=== PATIENT | male | born 1965 | race Caucasian/White ===

== ENCOUNTER 2023-10-25 06:00 | Emergency (ER) | payer MEDICARE, MEDICAID, SELFPAY ==
[2023-10-25] VITALS (9 sets, daily range): BP systolic 115–134; BP diastolic 59–68; PULSE 58–73; RESP 10–15; TEMP 36.7–36.8; O2SAT 95–100; BMI 29.5
--- NOTE | 2023-10-25 06:03 | ECG_ITS ---
APPROVED REPORT Exam: Resting ECG HR:63 bpm ECG Measurements Heart Rate 63 AXES WI 131 P 87 QRSd 114 QRS 83 QT 406 T 54 QTc 414 Conclusion SINUS RHYTHM MODERATE INTRAVENTRICULAR CONDUCTION DELAY [110+ ms QRS DURATION] BORDERLINE ECG Electronically signed by : BRIT SIMPSON, 10/25/2023 15:18:14
--- NOTE | 2023-10-25 06:05 | XR_ITS ---
FINAL REPORT CLINICAL HISTORY: cp to left shoulder, syncope COMPARISON: None FINDINGS: There is a vague opacity in the left lung base which could be due to active pneumonia or scarring. The right lung is clear. There is no evidence of effusion or pneumothorax. Mediastinum is unremarkable. Heart size is normal. IMPRESSION: Left lung base vague opacity could be due to active pneumonia or scarring. Reviewed, Interpreted and Dictated by Carly Lee MD Transcribed by Jayda Mack Authenticated and [facility]
--- NOTE | 2023-10-25 06:09 | HMH.EDCP ---
Discharge Plan Disposition Chief Complaint: Chest Pain Prescriptions Prescriptions: No Action sertraline [Zoloft] 100 mg Tablet 200 mg PO DAILY atorvastatin 80 mg Tablet 80 mg PO HS meloxicam 15 mg Tablet 15 mg PO DAILY divalproex [Depakote ER] 500 mg Tablet Extended Release 24 Hr 750 mg PO BID topiramate 200 mg Tablet 200 mg PO BID thiamine HCl (vitamin B1) [Vitamin B-1] 100 mg Tablet 100 mg PO DAILY albuterol 90 mcg/actuation Aerosol 2 mcg INHALATION NEEDED PRN (Reason: soa) Clinical Impressions Clinical Impression: Chest pain Discharge ED Provider: Pacheco Goodman HPI General Chief Complaint: Chest Pain Stated Complaint: Chest pain Time Seen by Provider: 10/25/23 06:03 History of Present Illness HPI narrative: Please note that above description of symptoms, in this electronic medical record under categorization of recalled from ER triage doctor by RN are reflective of an initial nursing assessment, however, is not reflective of my full history and physical exam that was personally taken and clarified. Consequentially, this preceding description of symptoms, which may include the patient's categorized chief complaint in the EMR, do not reflect my personal clinical impression, and the ultimate description of history of present illness and patient stated complaints should be deferred to this section of the note. Unless stated otherwise or congruent with this section of the note, additional signs, symptoms, or incongruence should be interpreted as inaccurate with my clinical impression. Related Data Home Medications Medication Instructions Recorded Confirmed albuterol 90 mcg/actuation aerosol 2 mcg inhalation NEEDED PRN soa 10/25/23 10/25/23 inhaler atorvastatin 80 mg tablet 80 mg PO HS 10/25/23 10/25/23 divalproex 500 mg tablet,extended 750 mg PO BID 10/25/23 10/25/23 release 24 hr (Depakote ER) meloxicam 15 mg tablet 15 mg PO DAILY 10/25/23 10/25/23 sertraline 100 mg tablet (Zoloft) 200 mg PO DAILY 10/25/23 10/25/23 thiamine HCl (vitamin B1) 100 mg 100 mg PO DAILY 10/25/23 10/25/23 tablet (Vitamin B-1) topiramate 200 mg tablet 200 mg PO BID 10/25/23 10/25/23 Allergies Allergy/AdvReac Type Severity Reaction Status Date / Time No Known Allergies Allergy Verified 10/25/23 06:16 [facility] Disclaimer: The information contained in this section may have been updated after the patient was seen, as this information can be updated by other users. Medical History (Updated 10/25/23 @ 06:52 by Pacheco Goodman MD) Seizures Surgical History (Updated 10/25/23 @ 06:16 by Flora Martins RN) H/O heart artery stent Social History Smoking Status: Current every day smoker alcohol intake: never current occupational status: unemployed Travel in the last 8 weeks: None ROS Obtained: Yes All systems reviewed & no additional complaints except as documented Physical Exam General General appearance: alert Neck Neck exam: Present trachea midline Chest Chest inspection: Present normal inspection and symmetric chest wall rise Respiratory Respiratory exam: Present normal lung sounds bilaterally; Absent respiratory distress, wheezes, stridor, accessory muscle use or prolonged expiratory phase Cardiovascular Cardiovascular exam: Present regular rate and normal rhythm Extremities Exam Extremities exam: Absent edema Neurological Exam Neurological exam: Present alert, oriented X3 and CN II-XII intact Skin Skin exam: Present warm and dry; Absent cyanosis, diaphoresis or pallor HEART Score HEART Score HEART Score assessment performed?: No Procedures Limited Ultrasound Indication:: Limited cardiac ultrasound Indication: Chest pain Identified cardiac views: -Cardiac parasternal long axis -Cardiac parasternal short axis -Cardiac apical four-chamber Findings: -Cardiac activity present -Gross wall motion normal -Pericardial effusion absent -Right heart strain absent Impression: -Normal cardiac ultrasound Images were saved to permanent archive The study was technically adequate CPT: 14208 This study was performed by me, and I personally interpreted all images/videos. Based on my clinical judgement, these images were adequate and did not necessitate further imaging. Critical Care Critical Care Time Critical Care Time: No Medical Decision Making Medical Records Medical records reviewed: Yes I reviewed the patient's medical records. Joseluis Inquiry Pt receiving controlled substance: No Joseluis was queried for this patient: No Vital Signs Vital Signs: 10/25/23 06:00 10/25/23 06:06 10/25/23 06:31 Temperature 98.2 F Temperature Source Oral Pulse Rate 66 73 Pulse Rate [Left Radial] 69 Respiratory Rate 14 13 12 Blood Pressure 134/59 L 127/68 Blood Pressure [Right Arm] 134/59 L Blood Pressure Mean [Right Arm] 84 Blood Pressure Source [Right Arm] Automatic Cuff Blood Pressure Position [Right Arm] Sitting 02 Sat by Pulse Oximetry 100 98 96 Oxygen Delivery Method Room Air Room Air Room Air Lab Data Labs: Lab Results 10/25/23 05:45: WBC 8.0, RBC 4.10 L, Hgb 14.4, Hct 44.2, MCV 108.0 H, MCH 35.1 H, MCHC 32.5, RDW 13.8, Plt Count 239, MPV 8.4, Neut % (Auto) 43.3, Lymph % (Auto) 46.1, [place] % (Auto) 6.9, Eos % (Auto) 2.7, Baso % (Auto) 1.0, Neut # (Auto) 3.5, Lymph # (Auto) 3.7, [place] # (Auto) 0.6, Eos # (Auto) 0.2, Baso # (Auto) 0.1, Sodium 144, Potassium 4.1, Chloride 101, Carbon Dioxide 30, Anion Gap 17.1 H, BUN 14, Creatinine 0.80, Estimated Creat Clear 132, Estimated GFR 100, Est GFR ( Amer) 121, Glucose 180 H, Hemoglobin A1c 6.7 H, Calcium 10.6 H, Total Bilirubin 0.3, AST 47, ALT 47, Alkaline Phosphatase 66, Total Protein 8.7 H, Albumin 4.6, Globulin 4.1 H, Albumin/Globulin Ratio 1.1, Triglycerides 152 H, Cholesterol 156, VLDL Cholesterol 30, HDL Cholesterol 25 L, Cholesterol/HDL Ratio 6.2 H, Lipase 124 10/25/23 06:09: VBG pH 7.30 L, VBG pCO2 58.2 H, VBG pO2 28.7, VBG HCO3 27.9, VBG Total CO2 29.7 H, VBG O2 Saturation 47.9 L, VBG Base Excess 1.5, VBG Lactic Acid 5.9 H 10/25/23 05:45 10/25/23 05:45 Response Orders (Tests/Meds): ED MEDICATIONS Generic Name Dose Route Start Last Admin Trade Name Freq PRN Reason Stop Dose Admin Lactated Ringer's 2,120 mls @ 1,060 mls/hr 10/25/23 06:16 10/25/23 06:20 Lactated Ringer's 1000 Ml Bag 30 ml/kg infuse over 2 hr (2120 ml) 10/25/23 08:15 1,060 mls/hr IV Administration .Q2H ONE Discontinued Medications Generic Name Dose Route Start Last Admin Trade Name Eleno PRN Reason Stop Dose Admin Aspirin 324 mg 10/25/23 06:04 10/25/23 06:21 Aspirin 81mg Chewable Tablet PO 10/25/23 06:05 Not Given ONCE ONE Aspirin 243 mg 10/25/23 06:04 10/25/23 06:20 Aspirin 81mg Chewable Tablet PO 10/25/23 06:05 243 mg ONCE ONE Administration Morphine Sulfate 4 mg 10/25/23 06:15 10/25/23 06:20 Morphine 4mg/Ml Syringe IV 10/25/23 06:16 4 mg ONCE ONE Administration ORDERS Category Date Time Status CT angio abdomen pelvis Stat Cat Scan 10/25/23 06:[address] angio head Stat Cat Scan 10/25/23 06:[address] angio neck Stat Cat Scan 10/25/23 06:[address] head/brain wo con Stat Cat Scan 10/25/23 06:10 Ordered CTA Chest [CT angio chest - dissection] Stat Cat Scan 10/25/23 06:10 Ordered POCUS Point of Care (ER Only) Stat Exams 10/25/23 06:05 Ordered XR chest portable Stat Exams 10/25/23 06:05 Ordered Complete Blood Count Auto Diff Stat Lab 10/25/23 05:45 Completed Comprehensive Metabolic Panel Stat Lab 10/25/23 05:45 Results Hemoglobin A1C Stat Lab 10/25/23 05:45 Completed Lactic Acid Stat Lab 10/25/23 06:06 Ordered Lipase Stat Lab 10/25/23 05:45 Results Lipid Panel Stat Lab 10/25/23 05:45 Results NT Pro Brain Natriuretic Pep. Stat Lab 10/25/23 05:45 Results PT INR [Prothrombin Time INR] Stat Lab 10/25/23 05:45 Received PTT [Activated Partial Thrombo Time] Stat Lab 10/25/23 05:45 Received Troponin I Q3H Lab 10/25/23 09:15 Ordered Troponin I Q3H Lab 10/25/23 12:15 Ordered Troponin I Stat Lab 10/25/23 05:45 Results Valproic Acid, (Depakene) Routine Lab 10/25/23 05:45 Received Blood Culture Stat Micro 10/25/23 06:16 Ordered VBG [Venous Blood Gas] Stat RT 10/25/23 06:09 Completed MDM Narrative Medical Decision Narrative: 58-year-old male history of hypertension, hyperlipidemia, depression, seizure disorder, CAD status post stenting x 4 (or more, per patient) presenting with chest pain. Patient states that he was sleeping when chest pain woke him up from sleep around 5 AM. Largely unable to offer history for unknown reasons. EMS states that they arrived, patient was tearful, complaining of severe pain substernal radiating to his left shoulder that was 10 out of 10 and unrelenting. Gave 81 mg aspirin. Patient has scattered bruising on chest, extremities which he stated for EMS was from seizures. On arrival, patient speaking intermittently, but does seem confused. Complaining of chest pain is left-sided, points to his left shoulder as well. Tearful. He does have scattered bruising, no evidence of acute trauma. They will seem to be resolving. Pulses are equal and symmetric in bilateral upper and lower extremities, abdominal exam within normal limits without pulsatile mass. Lungs are clear to auscultation bilaterally anterior and posterior. Cardiac exam within normal limits without extracardiac sounds. History was obtained via conversation with patient, EMS. On arrival, patient hemodynamically stable, alert, oriented to person, situation, and time, not place, appropriate, GCS 15, moving all extremities spontaneously, pupils equal and reactive to light. Full physical exam performed and significant for chronically ill-appearing male who is in mild acute distress, seemingly due to pain. Tearful, speaking in full sentences when he does answer verbally. Differential includes microvascular coronary artery disease, CHF, ACS, [place], coronary artery dissection, pneumothorax, PE, dissection, pericarditis, myocarditis, pneumothorax, aortic aneurysm, pneumonia, bronchitis, among others Patient was given 324 mg aspirin 4 mg morphine IV for symptomatic management and correction of underlying abnormalities. Workup independently interpreted and significant for No leukocytosis, normal CBC overall. Chemistry nonactionable. Mildly elevated anion gap at 17.1, but normal kidney function. Electrolytes normal. A1c 6.7, only mildly elevated triglycerides. Lipase negative. Valproic acid level versus slightly subtherapeutic at 49.4 with lower limit of normal being 50. Independent interpretation of EKG shows sinus rhythm 63 beats a minute with no ST or T wave changes concerning for acute ischemia. [place] 131, QRS 114, QTc 414. [place] normal. Patient placed on continuous cardiac monitoring and continuous pulse ox with initial blood pressure 134/59, heart rate 60, saturation 98 on room air. Bedside [id number] ultrasound with normal cardiac findings. Initial troponin pending at time of handoff to oncoming physician, heart score also therefore pending. Patient was placed in observation beginning at 6:30 AM in order to rule out evolving [place] with delta troponins, among other diagnoses with labs and imaging and determine need for admission versus home-going. The patient was provided medications, serial exams, cardiac and continuous pulse oximeter monitoring while awaiting results. Prior to final results and disposition, care handed off to oncoming physician. [employer] disclaimer Much of this encounter note is an electronic steam fitter supervisor spoken language to printed text. Electronic steam fitter supervisor of the spoken language may permit errors. Although I have reviewed the note, some errors may still exist.
--- NOTE | 2023-10-25 06:10 | CT_ITS ---
FINAL REPORT CLINICAL HISTORY: cp to left shoudler AMS COMPARISON: none FINDINGS: CTA HEAD TECHNIQUE: Thin section axial CT with contrast with 3D MIP reconstruction FINDINGS: No aneurysm is seen. Major intracranial vessels are patent without significant stenosis. . IMPRESSION: Unremarkable This study was performed using automated techniques to achieve radiation exposure as low as reasonably achievable Reviewed, Interpreted and Dictated by Carly Lee MD Transcribed by Jayda Mack Authenticated and [facility]
--- NOTE | 2023-10-25 06:10 | CT_ITS ---
FINAL REPORT CLINICAL HISTORY: cp to left thang ROBERTS COMPARISON: none FINDINGS: CT NECK ANGIO, WITHOUT AND WITH CONTRAST TECHNIQUE: Thin section axial CT with IV contrast supplemented with 3D MIP reconstruction NASCET criteria and technique was utilized during interpretation. FINDINGS: Aortic arch: Arch shows no significant narrowing. Great vessel origins are widely patent. Right carotid: No significant stenosis is seen of the cervical common or internal carotid artery. Left carotid: No significant stenosis is seen of the cervical common or internal carotid artery. Vertebrals: Left vertebral artery is dominant. No significant stenosis is present. IMPRESSION: No significant stenosis of the cervical carotid arteries This study was performed using automated techniques to achieve radiation exposure as low as reasonably Reviewed, Interpreted and Dictated by Carly Lee MD Transcribed by Jayda Mack Authenticated and [facility]
--- NOTE | 2023-10-25 06:10 | CT_ITS ---
FINAL REPORT TECHNIQUE: Pre-and postcontrast images of the abdomen through the pelvis were performed by computed tomography. Extensive 3-D reconstruction images were performed. A CTA was performed. This study was performed with techniques to keep radiation doses as low as reasonably achievable (ALARA). Individualized dose reduction techniques using automated exposure control or adjustment of mA and/or kV according to the patient's size were employed. CLINICAL HISTORY: cp to left shoudler AMS COMPARISON: None FINDINGS: ABDOMEN: There is mild bilateral renal scarring. There is a small right renal cyst. Remaining solid organs are unremarkable. The bowel is normal. The gallbladder is unremarkable. PELVIS: The appendix is not identified. The urinary bladder is unremarkable. There is mild prostate enlargement. The bowel is unremarkable. CTA: There is no evidence of abdominal aortic aneurysm or dissection. Scattered calcified plaque disease is noted. The renal and mesenteric arteries are widely patent. IMPRESSION: Unremarkable exam. Reviewed, Interpreted and Dictated by Carly Lee MD Transcribed by Jayda Mack Authenticated and [facility]
--- NOTE | 2023-10-25 06:10 | CT_ITS ---
FINAL REPORT TECHNIQUE: Thin section axial CT images were performed from the lung apices to the upper abdomen after the administration of IV contrast. 3-D and MIP reconstructions performed. This study was performed with techniques to keep radiation doses as low as reasonably achievable (ALARA). Individualized dose reduction techniques using automated exposure control or adjustment of mA and/or kV according to the patient's size were employed. CLINICAL HISTORY: cp to left shoudler AMS COMPARISON: None FINDINGS: Pulmonary vessels enhance in normal fashion without evidence of embolism. Thoracic aorta shows no dissection or aneurysm. There is an irregular oval density in the left posterior lung apex measuring 31 x 10 mm, probably coarse scarring. Neoplastic process is not entirely excluded. There is minimal lingular scarring or atelectasis. The right lung is clear. There is no significant pleural effusion. There is no significant pericardial effusion. No mediastinal or hilar adenopathy is present. IMPRESSION: No evidence of pulmonary embolism. Left apical lung density favored to be postinflammatory over neoplastic. Either 3-month chest CT follow-up or PET/CT recommended. Reviewed, Interpreted and Dictated by Carly Lee MD Transcribed by Jayda Mack Authenticated and [facility]
--- NOTE | 2023-10-25 06:10 | CT_ITS ---
FINAL REPORT TECHNIQUE: Axial imaging of the head was obtained without contrast. This study was performed with techniques to keep radiation doses as low as reasonably achievable, (ALARA). Individualized dose reduction techniques using automated exposure control or adjustment of mA and/or kV according to the patient''s size were employed. CLINICAL HISTORY: CP to left shoulder, AMS COMPARISON: 09/23/2023 FINDINGS: No abnormal density is seen. Ventricles are normal. There is no hemorrhage. No mass effect is seen. There is mild bilateral ethmoid sinusitis, slightly worse compared to the prior study. Bone windows show no evidence of fracture. IMPRESSION: No acute intracranial abnormality. Reviewed, Interpreted and Dictated by Carly Lee MD Transcribed by Jayda Mack Authenticated and [facility]
[2023-10-25 06:12] LABS: VBG Base Excess 1.5 mmol/L (-2.4-2.3); VBG HCO3 27.9 mmol/L (23-30); VBG Oxygen Saturation 47.9 % (50-70); VBG PCO2 58.2 mmol/L (35-51); VBG PO2 28.7 mmol/L (28-40); VBG Total CO2 29.7 mmol/L (23-27)
[2023-10-25 06:16] LABS: Lactate Venous 5.9 mmol/L (0.4-2.0)
[2023-10-25 06:18] LABS: Basophils # 0.1 K/mm3 (0-0.2); Eosinophils # 0.2 K/mm3 (0.0-0.4); Eosinophils % 2.7 % (0.1-12.0); Hematocrit 44.2 % (42.0-52.0); Hemoglobin 14.4 g/dL (14.1-18.0); Lymphocytes # 3.7 K/mm3 (0.7-4.5); Lymphocytes % 46.1 % (10-50); Mean Corpuscular HGB Conc 32.5 g/dL (31.8-35.4); Mean Corpuscular Hemoglobin 35.1 pg (27.0-31.2); Mean Platelet Volume 8.4 fl (7.4-10.4); Monocytes # 0.6 K/mm3 (0.1-1.0); Monocytes % 6.9 % (1.7-9.3); Neutrophils # 3.5 K/mm3 (1.8-7.8); Neutrophils % 43.3 % (37.0-80.0); Platelet Count 239 K/mm3 (142-424); Red Cell Distribution Width 13.8 % (11.5-17.5)
[2023-10-25] MEDS: ASPIRIN 81MG CHEWABLE TABLET 243 MG PO (06:20)
[2023-10-25] MEDS: LACTATED RINGERS 1000ML 2,120 ML 1060 ML IV (06:20)
[2023-10-25] MEDS: MORPHINE 4MG/ML SYRINGE 4 MG IV (06:20)
[2023-10-25 06:29] LABS: Chloride 101 mmol/L (98-107); Potassium 4.1 mmoL/L (3.5-5.1); Sodium 144 mmol/L (136-145)
[2023-10-25 06:31] LABS: Alanine Aminotransferase 47 U/L (12-78); Aspartate Amino Transferase 47 U/L (17-59); Blood Urea Nitrogen 14 mg/dl (9-20); Creatinine Clearance Estimated 132 mL/min (50-200); Estimated Glomerular Filt Rate 100 ml/min (>60); GFR (African American) 121 ML/MIN (>60)
[2023-10-25 06:32] LABS: Albumin Level 4.6 g/dl (3.5-5.0); Albumin/Globulin Ratio 1.1 (1.1-1.8); Alkaline Phosphatase 66 U/L (38-126); Anion Gap 17.1 mEq/L (5-15); Bilirubin,Total 0.3 mg/dl (0.2-1.3); Calcium 10.6 mg/dl (8.4-10.2); Carbon Dioxide 30 mmol/L (22.0-30.0); Globulin 4.1 g/dL (1.3-3.2); Glucose 180 mg/dl (74-100); HDL Cholesterol 25 mg/dl (40-60); Lipase 124 U/L (23-300); Total Protein,Serum 8.7 g/dl (6.3-8.2)
[2023-10-25 06:33] LABS: Chol/HDL Ratio 6.2 (1-3.5); Cholesterol 156 mg/dl (140-200); Triglycerides 152 mg/dl (30-150); VLDL Cholesterol 30 mg/dL (0-40)
[2023-10-25 06:35] LABS: Activated Partial Thrombo Time 27.2 seconds (22.8-30.6); INR 0.98 (0.9-1.1); Prothrombin Time 10.6 seconds (10.1-12.5)
[2023-10-25 06:38] LABS: Hemoglobin A1C 6.7 % (4.0-6.0)
[2023-10-25 06:40] LABS: Valproic Acid, (Depakene) 49.4 ug/ml (50-100)
[2023-10-25 06:43] LABS: Direct LDL Cholesterol 88.68 mg/dL (100-129)
[2023-10-25 06:45] LABS: NT Pro Brain Natriuretic Pep. 177 pg/mL (0-125)
[2023-10-25 07:08] LABS: Troponin I < 0.01 ng/ml (0.00-0.034)
[2023-10-25 07:12] LABS: Lactic Acid 1.5 mmol/L (0.7-2.1)
[2023-10-25] MEDS: 0.9 % SODIUM CHLORIDE 50 ML VIAL IV ×2 (07:27→07:28)
[2023-10-25] MEDS: IOPAMIDOL-370 (76%);100ML BOTTLE 100 ML IV ×2 (07:28)
[2023-10-25] MEDS: SODIUM CHLORIDE 0.9% 10ML SYR (RAD ONLY) 10 ML IV ×2 (07:28)
--- NOTE | 2023-10-25 07:33 | PC.NURSE ---
Contacted [facility] in [place] left a message with medical records to call us back. Pt has not been here before and wants to contact his sister but cannot remember her contact information. [place] key operator advised medical records opens at 0800.
--- NOTE | 2023-10-25 09:29 | PC.NURSE ---
second trop and vbg sent to lab, respiratory aware of blood sent to lab
[2023-10-25 09:36] LABS: VBG Base Excess -0.9 mmol/L (-2.4-2.3); VBG HCO3 24.5 mmol/L (23-30); VBG Oxygen Saturation 76.4 % (50-70); VBG PCO2 44.1 mmol/L (35-51); VBG PH 7.36 mmol/L (7.31-7.41); VBG PO2 41.5 mmol/L (28-40); VBG Total CO2 25.9 mmol/L (23-27)
[2023-10-25 09:38] LABS: Lactate Venous 2.4 mmol/L (0.4-2.0)
[2023-10-25 09:54] LABS: Troponin I < 0.01 ng/ml (0.00-0.034)
[2023-10-25] MEDS: levETIRAcetam 2,000 MG in 0.9 % SODIUM CHLORIDE 100 ML 480 MG IV (10:06)
[2023-10-25 10:15] LABS: Reflex Lactic Add Lactic Reflex
--- NOTE | 2023-10-25 10:31 | PC.NURSE ---
spoke with pts NOK. she is unable to come get pt at this time.
== END 2023-10-25 11:16 | disposition home or self-care (01) ==
PROVIDERS: Emergency Medicine; Emergency Provider Emergency Medicine; PCP Internal Medicine
DX: R07.89 Other chest pain (principal); G40.909 Epilepsy, unspecified, not intractable, without status epilepticus; J98.4 Other disorders of lung; E78.5 Hyperlipidemia, unspecified; I11.9 Hypertensive heart disease without heart failure; I25.10 Atherosclerotic heart disease of native coronary artery without angina pectoris; F17.210 Nicotine dependence, cigarettes, uncomplicated; Z95.5 Presence of coronary angioplasty implant and graft; R74.02 Elevation of levels of lactic acid dehydrogenase [LDH]; E87.29 Other acidosis
CPT/HCPCS: 70450; 70496; 70498; 71045; 71275; 74174; 80053; 80061; 80164; 82803; 83036; 83605; 83690; 83880; 84484; 85025; 85610; 85730; 87040; 93005; 96361; 96374; 96375; 99285; J1953; J2270; J7120; Q9967

== ENCOUNTER 2023-11-26 17:12 | Emergency (ER) | payer MEDICARE, MEDICAID, SELFPAY ==
[2023-11-26 17:12] VITALS: BP 132/71; PULSE 79; RESP 19; TEMP 37.1; O2SAT 97; BMI 28.8
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
[2023-11-26 17:30] VITALS: BP 127/72; PULSE 74; O2SAT 98
[2023-11-26 18:01] VITALS: BP 120/64; PULSE 67; O2SAT 96
[2023-11-26 18:30] VITALS: BP 128/72; PULSE 66; O2SAT 97
[2023-11-26 19:00] VITALS: BP 135/72; PULSE 60; O2SAT 97
[2023-11-26] MEDS: LIDOCAINE 1% 10ML MDV 10 ML SQ (19:38)
[2023-11-26] MEDS: ERYTHROMYCIN BASE 1 GM OINT...G. OP (19:46)
--- NOTE | 2023-11-26 19:58 | PC.NURSE ---
Spoke to staff at [facility] to transport patient back to facility
[2023-11-26] MEDS: cephALEXin 500MG CAPSULE 500 MG PO (20:01)
[2023-11-26 20:34] VITALS: BP 127/67; PULSE 77; RESP 18; TEMP 36.7; O2SAT 96
== END 2023-11-26 20:34 | disposition home or self-care (01) ==
PROVIDERS: Emergency Provider Emergency Medicine
DX: H11.31 Conjunctival hemorrhage, right eye (principal); S00.11XA Contusion of right eyelid and periocular area, initial encounter; S61.411A Laceration without foreign body of right hand, initial encounter; Y04.8XXA Assault by other bodily force, initial encounter
CPT/HCPCS: 12002; 99284

== ENCOUNTER 2023-12-08 18:10 | Emergency (ER) | payer MEDICARE, MEDICAID, SELFPAY ==
[2023-12-08 18:17] VITALS: BP 103/63; PULSE 66; RESP 16; TEMP 36.8; O2SAT 98; BMI 32.3
[2023-12-08 18:41] VITALS: BP 103/63; PULSE 66; RESP 16; TEMP 36.8
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
== END 2023-12-08 18:43 ==
PROVIDERS: Emergency Provider Emergency Medicine
DX: F10.929 Alcohol use, unspecified with intoxication, unspecified (principal); F17.210 Nicotine dependence, cigarettes, uncomplicated
CPT/HCPCS: 99281

== ENCOUNTER 2023-12-31 18:54 | Emergency (ER) | payer MEDICARE, MEDICAID, SELFPAY ==
[2023-12-31 18:54] VITALS: BP 140/86; PULSE 74; RESP 16; TEMP 36.6; O2SAT 94; BMI 22.8
--- NOTE | 2023-12-31 18:59 | XR_ITS ---
PROCEDURE INFORMATION: Exam: XR Chest Exam date and time: 12/31/2023 7:00 PM Age: 58 years old Clinical indication: Other: AMS TECHNIQUE: Imaging protocol: Radiologic exam of the chest. Views: 1 view. COMPARISON: CR XR CHEST PORTABLE 10/25/2023 7:11 AM FINDINGS: Lungs: No evidence of acute pulmonary disease or infiltrates Pleural spaces: No large effusion or pneumothorax. Heart/Mediastinum: Stable cardiac and mediastinal contours. Bones/joints: No evidence of acute osseous abnormalities within the visualized portions of the thoracic spine and ribs. Osseous structures appear appropriate for patient age. IMPRESSION: No dense parenchymal consolidation, pleural effusion, or pneumothorax.
--- NOTE | 2023-12-31 18:59 | ECG_ITS ---
APPROVED REPORT Exam: Resting ECG HR:58 bpm ECG Measurements Heart Rate 58 AXES IN 141 P 72 QRSd 105 QRS 83 QT 392 T 71 QTc 390 Conclusion SINUS BRADYCARDIA BORDERLINE ECG Electronically signed by : BRIT SIMPSON, 01/01/2024 15:09:22
[2023-12-31 19:07] VITALS: BP 130/58; PULSE 65; O2SAT 96
--- NOTE | 2023-12-31 19:07 | HMH.EDGENADL ---
Discharge Plan Disposition Patient Disposition: Home, Self-Care Chief Complaint: Altered Mental Status Prescriptions Prescriptions: No Action sertraline [Zoloft] 100 mg Tablet 200 mg PO DAILY atorvastatin 80 mg Tablet 80 mg PO HS meloxicam 15 mg Tablet 15 mg PO DAILY divalproex [Depakote ER] 500 mg Tablet Extended Release 24 Hr 750 mg PO BID topiramate 200 mg Tablet 200 mg PO BID thiamine HCl (vitamin B1) [Vitamin B-1] 100 mg Tablet 100 mg PO DAILY albuterol 90 mcg/actuation Aerosol 2 mcg INHALATION NEEDED PRN (Reason: soa) cephalexin 500 mg capsule 500 mg PO BID 7 Days Qty: 14 0RF erythromycin 5 mg/gram (0.5 %) ointment 1 applic ophthalmic (eye) BID Qty: 3.5 0RF Referrals Follow up/Referrals: Provider,Referral, MD [Primary Care Provider] - See instructions Clinical Impressions Clinical Impression: Alcohol intoxication Instructions Patient Instructions: DI for Altered Mental Status Print Language Print Language: Latvian Discharge ED Provider: Pacheco Goodman General Adult HPI General Chief complaint: Altered Mental Status Stated complaint: AMS Time Seen by Provider: 12/31/23 18:59 Mode of Arrival: EMS Source of Information: Patient and EMS Limitations: Altered Mental Status Description of Symptoms (Recalled from ER Triage Doc. by RN): brought in by EMS [place]. History of Present Illness HPI narrative: Please note that above description of symptoms, in this electronic medical record under categorization of recalled from ER triage doctor by RN are reflective of an initial nursing assessment, however, is not reflective of my full history and physical exam that was personally taken and clarified. Consequentially, this preceding description of symptoms, which may include the patient's categorized chief complaint in the EMR, do not reflect my personal clinical impression, and the ultimate description of history of present illness and patient stated complaints should be deferred to this section of the note. Unless stated otherwise or congruent with this section of the note, additional signs, symptoms, or incongruence should be interpreted as inaccurate with my clinical impression. Related Data Home Medications ?Medication ?Instructions ?Recorded ?Confirmed albuterol 90 mcg/actuation aerosol 2 mcg inhalation NEEDED PRN soa 10/25/23 10/25/23 inhaler atorvastatin 80 mg tablet 80 mg PO HS 10/25/23 10/25/23 divalproex 500 mg tablet,extended 750 mg PO BID 10/25/23 10/25/23 release 24 hr (Depakote ER) meloxicam 15 mg tablet 15 mg PO DAILY 10/25/23 10/25/23 sertraline 100 mg tablet (Zoloft) 200 mg PO DAILY 10/25/23 10/25/23 thiamine HCl (vitamin B1) 100 mg 100 mg PO DAILY 10/25/23 10/25/23 tablet (Vitamin B-1) topiramate 200 mg tablet 200 mg PO BID 10/25/23 10/25/23 Previous Rx's ?Medication ?Instructions ?Recorded cephalexin 500 mg capsule 500 mg PO BID 7 days #14 caps 11/26/23 erythromycin 5 mg/gram (0.5 %) eye 1 applic ophthalmic (eye) BID #3.5 11/26/23 ointment grams Allergies Allergy/AdvReac Type Severity Reaction Status Date / Time No Known Allergies Allergy Verified 12/08/23 18:21 [facility] Disclaimer: The information contained in this section may have been updated after the patient was seen, as this information can be updated by other users. Medical History Seizures Surgical History H/O heart artery stent Social History Smoking Status: Current every day smoker alcohol intake: never current occupational status: unemployed Travel in the last 8 weeks: None ROS Obtained: Yes All systems reviewed & no additional complaints except as documented Physical Exam General General appearance: alert Head Head
--- NOTE | 2023-12-31 19:17 | PC.NURSE ---
speaking with [facility] at this time
[2023-12-31 19:26] LABS: Basophils # 0.1 K/mm3 (0-0.2); Basophils % 0.9 % (0.1-2.0); Eosinophils # 0.2 K/mm3 (0.0-0.4); Eosinophils % 4.2 % (0.1-12.0); Hematocrit 42.1 % (42.0-52.0); Hemoglobin 13.5 g/dL (14.1-18.0); Lymphocytes % 51.1 % (10-50); Mean Corpuscular Hemoglobin 36.4 pg (27.0-31.2); Mean Corpuscular Volume 113.8 fl (80-94); Mean Platelet Volume 9.2 fl (7.4-10.4); Monocytes # 0.4 K/mm3 (0.1-1.0); Monocytes % 6.7 % (1.7-9.3); Neutrophils # 2.2 K/mm3 (1.8-7.8); Neutrophils % 37.2 % (37.0-80.0); Platelet Count 223 K/mm3 (142-424); Red Cell Distribution Width 13.5 % (11.5-17.5); White Blood Count 5.9 K/mm3 (4.8-10.8)
[2023-12-31 19:28] LABS: Albumin Level 4.3 g/dl (3.5-5.0); Chloride 107 mmol/L (98-107); MANUAL DIFFERENTIAL MANUAL DIFFERENTIAL (MANUAL DIFF); Potassium 4.9 mmoL/L (3.5-5.1); Sodium 140 mmol/L (136-145)
[2023-12-31 19:30] LABS: Blood Urea Nitrogen 15 mg/dl (9-20); Creatinine Clearance Estimated 88 mL/min (50-200); Estimated Glomerular Filt Rate 87 ml/min (>60); GFR (African American) 106 ML/MIN (>60)
[2023-12-31 19:31] VITALS: BP 131/70; PULSE 60; O2SAT 98
[2023-12-31 19:31] LABS: Alanine Aminotransferase 14 U/L (12-78); Albumin/Globulin Ratio 1.3 (1.1-1.8); Alkaline Phosphatase 57 U/L (38-126); Anion Gap 9.9 mEq/L (5-15); Aspartate Amino Transferase 27 U/L (17-59); Bilirubin,Total 0.4 mg/dl (0.2-1.3); Calcium 9.2 mg/dl (8.4-10.2); Carbon Dioxide 28 mmol/L (22.0-30.0); Globulin 3.4 g/dL (1.3-3.2); Glucose 110 mg/dl (74-100); Total Protein,Serum 7.7 g/dl (6.3-8.2)
[2023-12-31 19:35] LABS: Lactate Venous 1.5 mmol/L (0.4-2.0); VBG Base Excess 1.4 mmol/L (-2.4-2.3); VBG HCO3 26.5 mmol/L (23-30); VBG Oxygen Saturation 91.7 % (50-70); VBG PCO2 45.9 mmol/L (35-51); VBG PH 7.38 mmol/L (7.31-7.41); VBG PO2 57.2 mmol/L (28-40)
[2023-12-31 19:40] LABS: NT Pro Brain Natriuretic Pep. 157 pg/mL (0-125)
[2023-12-31 19:44] LABS: Troponin I < 0.01 ng/ml (0.00-0.034)
[2023-12-31 19:51] LABS: Eosinophils % 3 % (0-3); Lymphocytes % 48 % (10-50); Monocytes % 15 % (2-9); Neutrophils % 32 % (42-76); Platelet Estimate Normal; RBC Morphology Normal; Total Cells Counted 100
--- NOTE | 2023-12-31 21:10 | PC.NURSE ---
Called [facility], spoke to Madhuri. She states someone will come and get him.
[2023-12-31 21:57] VITALS: BP 130/78; PULSE 89; RESP 16; TEMP 36.6; O2SAT 97
== END 2023-12-31 21:59 | disposition home or self-care (01) ==
PROVIDERS: Emergency Provider Emergency Medicine
DX: R41.82 Altered mental status, unspecified (principal); F10.939 Alcohol use, unspecified with withdrawal, unspecified; G40.909 Epilepsy, unspecified, not intractable, without status epilepticus; I10 Essential (primary) hypertension; E78.5 Hyperlipidemia, unspecified; I25.10 Atherosclerotic heart disease of native coronary artery without angina pectoris
CPT/HCPCS: 71045; 80053; 82803; 83880; 84484; 85007; 85025; 85027; 93005; 96360; 99285; J7120

== ENCOUNTER 2024-01-04 17:51 | Emergency (ER) | payer MEDICARE, MEDICAID, SELFPAY ==
[2024-01-04 17:52] VITALS: BP 130/61; PULSE 79; RESP 17; TEMP 36.6; O2SAT 100; BMI 22.3
[2024-01-04 18:00] VITALS: BP 131/65; PULSE 74; RESP 16; O2SAT 99
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
--- NOTE | 2024-01-04 18:01 | PC.NURSE ---
seizure pads placed on bed for protection
[2024-01-04 18:09] LABS: Basophils # 0.1 K/mm3 (0-0.2); Basophils % 0.7 % (0.1-2.0); Eosinophils # 0.2 K/mm3 (0.0-0.4); Eosinophils % 2.6 % (0.1-12.0); Hematocrit 41.8 % (42.0-52.0); Hemoglobin 13.5 g/dL (14.1-18.0); Lymphocytes # 3.2 K/mm3 (0.7-4.5); Lymphocytes % 41.6 % (10-50); Mean Corpuscular HGB Conc 32.2 g/dL (31.8-35.4); Mean Corpuscular Hemoglobin 35.9 pg (27.0-31.2); Mean Corpuscular Volume 111.6 fl (80-94); Mean Platelet Volume 9.2 fl (7.4-10.4); Monocytes # 0.6 K/mm3 (0.1-1.0); Monocytes % 7.3 % (1.7-9.3); Neutrophils # 3.7 K/mm3 (1.8-7.8); Neutrophils % 47.8 % (37.0-80.0); Platelet Count 215 K/mm3 (142-424); Red Blood Count 3.75 M/mm3 (4.60-6.20); Red Cell Distribution Width 13.4 % (11.5-17.5); White Blood Count 7.7 K/mm3 (4.8-10.8)
--- NOTE | 2024-01-04 18:17 | ED_ITS ---
Discharge Plan Disposition Patient Disposition: Home, Self-Care Chief Complaint: Seizure Prescriptions Prescriptions: No Action sertraline [Zoloft] 100 mg Tablet 200 mg PO DAILY atorvastatin 80 mg Tablet 80 mg PO HS meloxicam 15 mg Tablet 15 mg PO DAILY divalproex [Depakote ER] 500 mg Tablet Extended Release 24 Hr 750 mg PO BID topiramate 200 mg Tablet 200 mg PO BID thiamine HCl (vitamin B1) [Vitamin B-1] 100 mg Tablet 100 mg PO DAILY albuterol 90 mcg/actuation Aerosol 2 mcg INHALATION NEEDED PRN (Reason: soa) cephalexin 500 mg capsule 500 mg PO BID 7 Days Qty: 14 0RF erythromycin 5 mg/gram (0.5 %) ointment 1 applic ophthalmic (eye) BID Qty: 3.5 0RF Referrals Follow up/Referrals: Provider,Referral, MD [Primary Care Provider] - See instructions Activity Restrictions/Add. Instructions Additional Instructions/Restrictions: Call your family doctor to establish care for this visit to the emergency department and schedule follow-up within 48 hours to ensure improvement. If you have any worsening of your condition or any other concerning signs or symptoms, return to the emergency department or your primary care doctor for further evaluation. Seizure precautions - do not do any of these activities until cleared by your neurologist: 1) avoid sleep deprivation 2) avoid open bodies of water and open flames 3) avoid swimming alone 4) take showers, do not take baths 5) avoid any situation where loss of consciousness may predispose to injury or 6) avoid driving Clinical Impressions Clinical Impression: Breakthrough seizure Instructions Patient Instructions: DI for Seizure Disorder -- Adult, DI for Seizure (Not Epilepsy/Seizure Disorder), DI for Seizure Disorder -- Child Print Language Print Language: Tajik Discharge ED Provider: Pacheco Goodman General Adult HPI General Chief complaint: Seizure Stated complaint: Fall Time Seen by Provider: 01/04/24 17:59 History of Present Illness HPI narrative: Please note that above description of symptoms, in this electronic medical record under categorization of recalled from ER triage doctor by RN are reflective of an initial nursing assessment, however, is not reflective of my full history and physical exam that was personally taken and clarified. Consequentially, this preceding description of symptoms, which may include the patient's categorized chief complaint in the EMR, do not reflect my personal clinical impression, and the ultimate description of history of present illness and patient stated complaints should be deferred to this section of the note. Unless stated otherwise or congruent with this section of the note, additional signs, symptoms, or incongruence should be interpreted as inaccurate with my clinical impression. Related Data Home Medications ?Medication ?Instructions ?Recorded ?Confirmed albuterol 90 mcg/actuation aerosol 2 mcg inhalation NEEDED PRN soa 10/25/23 10/25/23 inhaler atorvastatin 80 mg tablet 80 mg PO HS 10/25/23 10/25/23 divalproex 500 mg tablet,extended 750 mg PO BID 10/25/23 10/25/23 release 24 hr (Depakote ER) meloxicam 15 mg tablet 15 mg PO DAILY 10/25/23 10/25/23 sertraline 100 mg tablet (Zoloft) 200 mg PO DAILY 10/25/23 10/25/23 thiamine HCl (vitamin B1) 100 mg 100 mg PO DAILY 10/25/23 10/25/23 tablet (Vitamin B-1) topiramate 200 mg tablet 200 mg PO BID 10/25/23 10/25/23 Previous Rx's ?Medication ?Instructions ?Recorded cephalexin 500 mg capsule 500 mg PO BID 7 days #14 caps 11/26/23 erythromycin 5 mg/gram (0.5 %) eye 1 applic ophthalmic (eye) BID #3.5 11/26/23 ointment grams Allergies Allergy/AdvReac Type Severity Reaction Status Date / Time No Known Allergies Allergy Verified 12/08/23 18:21 [facility] Disclaimer: The information contained in this section may have been updated after the patient was seen, as this information can be updated by other users. Medical History Seizures Surgical History H/O heart artery stent Social History Smoking Status: Current every day smoker alcohol intake: never current occupational status: unemployed Travel in the last 8 weeks: None ROS Obtained: Yes unobtainable due to mental status (Postictal) Physical Exam General General appearance: other (Sleepy, answering questions and following commands. Repetitive questioning) Head Head exam: normocephalic and other (Small laceration overlying left orbital rim superiorly. No evidence of obvious palpable fracture.) Eye Eye exam: Present normal appearance, PERRL, EOMI, periorbital tenderness (Superior orbital rim laterally on left eye) and other (No evidence of hyphema, proptosis, entrapment, conjunctival hemorrhage, pupillary changes, cellulitic change, obvious foreign body, or otherwise irregular ocular findings. . [IOP]. [Visual acuity].) Neck Neck exam: Present normal inspection, full ROM and trachea midline Respiratory Respiratory exam: Present normal lung sounds bilaterally; Absent respiratory distress, wheezes, stridor, accessory muscle use or prolonged expiratory phase Cardiovascular Cardiovascular exam: Present regular rate, normal rhythm and other (Pulses equal symmetric in upper and lower extremities) Abdominal Exam Abdominal exam: Present soft; Absent distention, tenderness or pulsatile mass Extremities Exam Extremities exam: Absent edema Neurological Exam Neurological exam: Present CN II-XII intact (Following commands appropriately) and other (GCS 13); Absent motor sensory deficit Skin Skin exam: Present warm and dry; Absent diaphoresis or erythema Medical Decision Making Medical Records Medical records reviewed: Yes I reviewed the patient's medical records. Joseluis Inquiry Pt receiving controlled substance: No Josleuis was queried for this patient: No Vital Signs: 01/04/24 17:52 01/04/24 18:00 01/04/24 18:30 Temperature 97.8 F Temperature Source Oral Pulse Rate 74 69 Pulse Rate [Right] 79 Respiratory Rate 17 16 16 Blood Pressure 131/65 122/55 L Blood Pressure [Left Arm] 130/61 Blood Pressure Mean 87 77 Blood Pressure Mean [Left Arm] 84 Blood Pressure Source [Left Arm] Automatic Cuff 02 Sat by Pulse Oximetry 100 99 98 Oxygen Delivery Method Room Air Lab Data Lab Results 01/04/24 17:54: WBC 7.7, RBC 3.75 L, Hgb 13.5 L, Hct 41.8 L, MCV 111.6 H, MCH 35.9 H, MCHC 32.2, RDW 13.4, Plt Count 215, MPV 9.2, Neut % (Auto) 47.8, Lymph % (Auto) 41.6, [place] % (Auto) 7.3, Eos % (Auto) 2.6, Baso % (Auto) 0.7, Neut # (Auto) 3.7, Lymph # (Auto) 3.2, [place] # (Auto) 0.6, Eos # (Auto) 0.2, Baso # (Auto) 0.1, Sodium 141, Potassium 3.6, Chloride 110 H, Carbon Dioxide 26, Anion Gap 8.6, BUN 18, Creatinine 0.90, Estimated GFR 87, Est GFR ( Amer) 106, Glucose 120 H, Calcium 8.6, Total Bilirubin 0.4, AST 23, ALT 14, Alkaline Phosphatase 51, Troponin I < 0.01, Total Protein 7.1, Albumin 3.9, Globulin 3.2, Albumin/Globulin Ratio 1.2 01/04/24 18:09: VBG pH 7.36, VBG pCO2 45.4, VBG pO2 53.5 H, VBG HCO3 24.8, VBG Total CO2 26.2, VBG O2 Saturation 86.3 H, VBG Base Excess -0.7, VBG Lactic Acid 3.4 H 01/04/24 17:54 01/04/24 17:54 Orders (Tests/Meds): ED MEDICATIONS Discontinued Medications Generic Name Dose Route Start Last Admin Trade Name Freq PRN Reason Stop Dose Admin Levetiracetam 2,000 mg/ Sodium 120 mls @ 240 mls/hr 01/04/24 17:59 01/04/24 18:22 Chloride IV 01/04/24 18:00 240 mls/hr ONCE ONE Administration Lactated Ringer's 1,000 mls @ 999 mls/hr 01/04/24 18:02 01/04/24 18:22 Lactated Ringer's 1000 Ml Bag IV 01/04/24 19:02 999 mls/hr .Q1H1M ONE Administration Lidocaine HCl 20 ml 01/04/24 18:13 01/04/24 18:21 Lidocaine 1% 20ml Mdv SQ 01/04/24 18:14 20 ml ONCE ONE Administration ORDERS Category Date Time Status CT cervical spine wo con Stat Cat Scan 01/04/24 18:[address] head/brain wo con Stat Cat Scan 01/04/24 18:00 Completed Complete Blood Count Auto Diff Stat Lab 01/04/24 17:54 Completed Comprehensive Metabolic Panel Stat Lab 01/04/24 17:54 Completed Ethanol [Ethyl Alcohol] Stat Lab 01/04/24 17:54 Received Troponin I Q3H Lab 01/04/24 21:15 Ordered Troponin I Q3H Lab 01/05/24 00:15 Ordered Troponin I Stat Lab 01/04/24 17:54 Completed VBG [Venous Blood Gas] Stat RT 01/04/24 18:09 Completed ECG Data Tracing #1: I reviewed this ECG and interpreted as documented below: (Sinus rhythm 63 beats a minute. NM 145, QRS 114, QTc 410. No ST or T wave changes concerning for acute ischemia) Medical Decision Narrative: 58-year-old male history of seizure disorder, ethanol use disorder presenting with seizure. Patient was at his self-prison just prior to this visit, had seizure, fell out of his chair. EMS was called, postictal on arrival. Glucose 132 with them. On arrival to the emergency department here, patient is confused, postictal, repetitive questioning. Patient does not remember the event. No tongue laceration, although he is edentulous. Did not urinate on himself. Neurologically intact, following commands, but GCS 13 for confusion and opening eyes to voice. Pupils are 4 mm and reactive bilaterally. Differential includes intracranial hemorrhage, critical extension C-spine injury, seizure, medication noncompliance, alcohol withdrawal, intoxication, metabolic abnormality, endocrinologic abnormality, breakthrough seizure, ACS, arrhythmia, among others. Patient placed on continuous cardiac monitoring and continuous pulse ox with initial blood pressure 130/61, heart rate 79, saturation 100 on room air. Patient was given 2 g Keppra, LR bolus for symptomatic management and correction of underlying abnormalities. Workup independently interpreted and significant for nonactionable CBC or chemistry. Negative troponin. On independent interpretation of imaging, no acute intracranial hemorrhage, no cervical spine injury. See radiology read for full review of final results. Laceration was repaired, see laceration repair note. On reevaluation, patient no longer postictal. States he was started on a recent new medication by psychiatrist. Unable to determine what that medication was at this time. Recommend he follow- up with his family doctor, he is agreeable. Because patient at baseline without signs or symptoms of clinical decompensation, deemed appropriate for discharge. Results were relayed to patient who voiced understanding and were agreeable to outpatient management and follow up. I discussed my clinical impression with patient and answered all questions. At this time, the evidence for any other entities in the differential is insufficient to warrant any further testing or ED observation. This was explained as well. Advisory was given that persistent or worsening symptoms require further evaluation. I confirmed the understanding of this discussion. Network Development Coordinator disclaimer Much of this encounter note is an electronic behavioral health director spoken language to printed text. Electronic behavioral health director of the spoken language may permit errors. Although I have reviewed the note, some errors may still exist. Procedures Laceration Laceration 1: Site: face Side (If applicable): left Size (cm): 2 Description: linear Depth: involves subcutaneous layer Local Anesthetic: lidocaine 1% Amount of anesthesia used (mL): 5 Pre-repair: wound explored, irrigated extensively and deep structures intact Skin layer closed with: vicryl Size (cm): 3-0 Number of sutures: 4 Technique: simple, interrupted Critical Care Critical Care Time Critical Care Time: No
[2024-01-04 18:20] LABS: VBG Base Excess -0.7 mmol/L (-2.4-2.3); VBG HCO3 24.8 mmol/L (23-30); VBG Oxygen Saturation 86.3 % (50-70); VBG PCO2 45.4 mmol/L (35-51); VBG PH 7.36 mmol/L (7.31-7.41); VBG PO2 53.5 mmol/L (28-40); VBG Total CO2 26.2 mmol/L (23-27)
[2024-01-04 18:21] LABS: Lactate Venous 3.4 mmol/L (0.4-2.0)
[2024-01-04] MEDS: LIDOCAINE 1% 20ML MDV 20 ML SQ (18:21)
[2024-01-04] MEDS: levETIRAcetam 2,000 MG in 0.9 % SODIUM CHLORIDE 100 ML 240 MG IV (18:22)
[2024-01-04] MEDS: LACTATED RINGERS 1000ML 1,000 ML 999 ML IV (18:22)
--- NOTE | 2024-01-04 18:25 | ECG_ITS ---
APPROVED REPORT Exam: Resting ECG HR:63 bpm ECG Measurements Heart Rate 63 AXES LA 145 P 77 QRSd 114 QRS 88 QT 403 T 64 QTc 410 Conclusion SINUS RHYTHM Electronically signed by : ROSALIE ALLEN, 01/04/2024 21:49:13
[2024-01-04 18:30] VITALS: BP 122/55; PULSE 69; RESP 16; O2SAT 98
[2024-01-04 18:32] LABS: Chloride 110 mmol/L (98-107); Potassium 3.6 mmoL/L (3.5-5.1); Sodium 141 mmol/L (136-145)
[2024-01-04 18:33] LABS: Alanine Aminotransferase 14 U/L (12-78); Anion Gap 8.6 mEq/L (5-15); Aspartate Amino Transferase 23 U/L (17-59); Bilirubin,Total 0.4 mg/dl (0.2-1.3); Blood Urea Nitrogen 18 mg/dl (9-20); Calcium 8.6 mg/dl (8.4-10.2); Carbon Dioxide 26 mmol/L (22.0-30.0); Estimated Glomerular Filt Rate 87 ml/min (>60); GFR (African American) 106 ML/MIN (>60); Glucose 120 mg/dl (74-100); Total Protein,Serum 7.1 g/dl (6.3-8.2)
[2024-01-04 18:34] LABS: Albumin Level 3.9 g/dl (3.5-5.0); Albumin/Globulin Ratio 1.2 (1.1-1.8); Alkaline Phosphatase 51 U/L (38-126); Globulin 3.2 g/dL (1.3-3.2)
[2024-01-04 18:36] LABS: Troponin I < 0.01 ng/ml (0.00-0.034)
--- NOTE | 2024-01-04 19:02 | PC.NURSE ---
DR ALLEN STATED TO CANCEL LACTIC AND AMMONIA
[2024-01-04 19:50] LABS: Ethyl Alcohol < 10 mg/dl (0-10)
[2024-01-04 19:57] VITALS: BP 128/59; PULSE 60; RESP 17; TEMP 36.8; O2SAT 98
[2024-01-04 22:21] LABS: Reflex Lactic Add Lactic Reflex
== END 2024-01-04 20:01 | disposition home or self-care (01) ==
PROVIDERS: Emergency Provider Emergency Medicine
DX: G40.919 Epilepsy, unspecified, intractable, without status epilepticus (principal); F17.200 Nicotine dependence, unspecified, uncomplicated; S01.112A Laceration without foreign body of left eyelid and periocular area, initial encounter; W07.XXXA Fall from chair, initial encounter; Y92.009 Unspecified place in unspecified non-institutional (private) residence as the place of occurrence of the external cause
CPT/HCPCS: 12011; 70450; 72125; 80053; 80320; 82803; 84484; 85025; 93005; 96361; 96374; 99285; G0480; J1953; J7120

== ENCOUNTER 2024-01-11 10:04 | Emergency (ER) | payer MEDICARE, MEDICAID, SELFPAY ==
[2024-01-11] VITALS (9 sets, daily range): BP systolic 95–114; BP diastolic 31–78; PULSE 53–67; RESP 18–22; TEMP 37.2–37.9; O2SAT 94–97; BMI 22.8
--- NOTE | 2024-01-11 10:10 | PC.NURSE ---
seizure pads placed
--- NOTE | 2024-01-11 10:18 | XR_ITS ---
FINAL REPORT CLINICAL HISTORY: seizure, ams COMPARISON: 12/31/2023 FINDINGS: A single portable view of the chest was obtained. The heart size and pulmonary vascularity are within normal limits. The mediastinum is within normal limits. No acute pulmonary abnormality is identified. There is pleural thickening and/or scar present in the left lateral thorax, which is stable when compared to the prior exam of December 30. No evidence of pneumothorax is seen. The bony thorax is intact. IMPRESSION: Pleural thickening and/or scar present in the left lateral thorax, stable when compared to the prior exam. No acute abnormality is noted. Reviewed, Interpreted and Dictated by Russel Muniz III, MD Transcribed by Codi Rowley Authenticated and [facility]
--- NOTE | 2024-01-11 10:18 | CT_ITS ---
FINAL REPORT CLINICAL HISTORY: fall, head trauma, seizure COMPARISON: 01/04/2024 FINDINGS: Axial images of the head were obtained without contrast. Coronal and sagittal reformatted images were also obtained. This study was performed with techniques to keep radiation doses as low as reasonably achievable (ALARA). Individualized dose reduction techniques using automated exposure control or adjustment of mA and/or kV according to the patient's size were employed. There is motion on some images which slightly limits overall image quality. There is mild generalized age appropriate atrophy. There is no evidence of intracranial hemorrhage or mass. The ventricular size is within normal limits. There is no evidence of shift of the midline structures. No skull abnormality is seen on the bone window images. There is soft tissue thickening in multiple paranasal sinuses with a small air-fluid level that may represent hemorrhage or sinusitis in the right maxillary sinus. IMPRESSION: No acute intracranial abnormality. Soft tissue thickening in multiple paranasal sinuses with a small air-fluid level in the right maxillary sinus that may represent hemorrhage or sinusitis. Reviewed, Interpreted and Dictated by Russel Muniz III, MD Transcribed by Codi Rowley Authenticated and [facility]
--- NOTE | 2024-01-11 10:32 | ECG_ITS ---
APPROVED REPORT Exam: Resting ECG HR:64 bpm ECG Measurements Heart Rate 64 AXES MD 142 P 74 QRSd 105 QRS 102 QT 384 T 64 QTc 393 Conclusion Sinus rhythm Right axis deviation Electronically signed by : ROSALIE ALLEN, 01/11/2024 16:15:12
--- NOTE | 2024-01-11 10:36 | PC.NURSE ---
respiratory aware of vbg
[2024-01-11] MEDS: levETIRAcetam 2,000 MG in 0.9 % SODIUM CHLORIDE 100 ML 240 MG IV (10:37)
[2024-01-11 10:43] LABS: Lactate Venous 1.9 mmol/L (0.4-2.0); VBG HCO3 23.4 mmol/L (23-30); VBG Oxygen Saturation 64.6 % (50-70); VBG PCO2 42.5 mmol/L (35-51); VBG PH 7.36 mmol/L (7.31-7.41); VBG PO2 32.4 mmol/L (28-40); VBG Total CO2 24.7 mmol/L (23-27)
[2024-01-11 10:50] LABS: Influenza A, PCR Not Detected (NotDetected); Influenza B, PCR Not Detected (NotDetected)
[2024-01-11 10:55] LABS: Activated Partial Thrombo Time 27.3 seconds (22.8-30.6); INR 0.95 (0.9-1.1); Prothrombin Time 10.7 seconds (10.1-12.5)
[2024-01-11 11:02] LABS: Basophils # 0.2 K/mm3 (0-0.2); Basophils % 4.1 % (0.1-2.0); Eosinophils % 0.8 % (0.1-12.0); Hematocrit 42.5 % (42.0-52.0); Hemoglobin 13.6 g/dL (14.1-18.0); Lymphocytes # 1.5 K/mm3 (0.7-4.5); Lymphocytes % 27.9 % (10-50); Mean Corpuscular Hemoglobin 35.3 pg (27.0-31.2); Mean Corpuscular Volume 110.5 fl (80-94); Mean Platelet Volume 9.2 fl (7.4-10.4); Monocytes # 0.8 K/mm3 (0.1-1.0); Monocytes % 14.8 % (1.7-9.3); Neutrophils # 2.8 K/mm3 (1.8-7.8); Neutrophils % 52.3 % (37.0-80.0); Platelet Count 192 K/mm3 (142-424); Red Blood Count 3.84 M/mm3 (4.60-6.20); Red Cell Distribution Width 13.8 % (11.5-17.5); White Blood Count 5.3 K/mm3 (4.8-10.8)
--- NOTE | 2024-01-11 11:03 | HMH.EDGENADL ---
Discharge Plan Disposition Patient Disposition: Home, Self-Care Prescriptions Prescriptions: No Action sertraline [Zoloft] 100 mg Tablet 200 mg PO DAILY atorvastatin 80 mg Tablet 80 mg PO HS meloxicam 15 mg Tablet 15 mg PO DAILY divalproex [Depakote ER] 500 mg Tablet Extended Release 24 Hr 750 mg PO BID topiramate 200 mg Tablet 200 mg PO BID thiamine HCl (vitamin B1) [Vitamin B-1] 100 mg Tablet 100 mg PO DAILY albuterol 90 mcg/actuation Aerosol 2 mcg INHALATION NEEDED PRN (Reason: soa) cephalexin 500 mg capsule 500 mg PO BID 7 Days Qty: 14 0RF erythromycin 5 mg/gram (0.5 %) ointment 1 applic ophthalmic (eye) BID Qty: 3.5 0RF Activity Restrictions/Add. Instructions Additional Instructions/Restrictions: Talk to your family doctor about increasing the level of your antiseizure medications to prevent having further seizures. Call your family doctor to establish care for this visit to the emergency department and schedule follow-up within 48 hours to ensure improvement. If you have any worsening of your condition or any other concerning signs or symptoms, return to the emergency department or your primary care doctor for further evaluation. Seizure precautions - do not do any of these activities until cleared by your neurologist: 1) avoid sleep deprivation 2) avoid open bodies of water and open flames 3) avoid swimming alone 4) take showers, do not take baths 5) avoid any situation where loss of consciousness may predispose to injury or 6) avoid driving Take Tylenol 1000 mg every 6 hours (4 times daily) and ibuprofen 400 mg every 6 hours (4 times daily) as needed with food and water to prevent GI upset and kidney damage. Clinical Impressions Clinical Impression: COVID-19, Breakthrough seizure Instructions Patient Instructions: DI for Seizure Disorder -- Adult, DI for Seizure (Not Epilepsy/Seizure Disorder), DI for Seizure Disorder -- Child Print Language Print Language: Bots[place] Discharge ED Provider: Pacheco Goodman General Adult HPI General Chief complaint: Seizure Stated complaint: Seizure Time Seen by Provider: 01/11/24 10:09 Mode of Arrival: EMS Source of Information: EMS and Medical Record Limitations: No Limitations Description of Symptoms (Recalled from ER Triage Doc. by RN): per [facility], pt was found in another resident room under the bed, stool noted on pt. pt confused, per ems pt was postictal upon arrival to pt. History of Present Illness HPI narrative: Please note that above description of symptoms, in this electronic medical record under categorization of recalled from ER triage doctor by RN are reflective of an initial nursing assessment, however, is not reflective of my full history and physical exam that was personally taken and clarified. Consequentially, this preceding description of symptoms, which may include the patient's categorized chief complaint in the EMR, do not reflect my personal clinical impression, and the ultimate description of history of present illness and patient stated complaints should be deferred to this section of the note. Unless stated otherwise or congruent with this section of the note, additional signs, symptoms, or incongruence should be interpreted as inaccurate with my clinical impression. Related Data Home Medications ?Medication ?Instructions ?Recorded ?Confirmed albuterol 90 mcg/actuation aerosol 2 mcg inhalation NEEDED PRN soa 10/25/23 10/25/23 inhaler atorvastatin 80 mg tablet 80 mg PO HS 10/25/23 10/25/23 divalproex 500 mg tablet,extended 750 mg PO BID 10/25/23 10/25/23 release 24 hr (Depakote ER) meloxicam 15 mg tablet 15 mg PO DAILY 10/25/23 10/25/23 sertraline 100 mg tablet (Zoloft) 200 mg PO DAILY 10/25/23 10/25/23 thiamine HCl (vitamin B1) 100 mg 100 mg PO DAILY 10/25/23 10/25/23 tablet (Vitamin B-1) topiramate 200 mg tablet 200 mg PO BID 10/25/23 10/25/23 Previous Rx's ?Medication ?Instructions ?Recorded cephalexin 500 mg capsule 500 mg PO BID 7 days #14 caps 11/26/23 erythromycin 5 mg/gram (0.5 %) eye 1 applic ophthalmic (eye) BID #3.5 11/26/23 ointment grams Allergies Allergy/AdvReac Type Severity Reaction Status Date / Time No Known Allergies Allergy Verified 12/08/23 18:[address] [facility] Disclaimer: The information contained in this section may have been updated after the patient was seen, as this information can be updated by other users. Medical History Seizures Surgical History H/O heart artery stent Social History Smoking Status: Current every day smoker alcohol intake: never current occupational status: unemployed Travel in the last 8 weeks: None ROS Obtained: Yes All systems reviewed & no additional complaints except as documented Physical Exam General General appearance: other (Lethargic, responsive) Head Head exam: atraumatic and normocephalic Eye Eye exam: Present normal appearance, PERRL and EOMI Neck Neck exam: Present normal inspection, full ROM and trachea midline Respiratory Respiratory exam: Present normal lung sounds bilaterally; Absent respiratory distress, wheezes, stridor, accessory muscle use or prolonged expiratory phase Cardiovascular Cardiovascular exam: Present regular rate, normal rhythm and other (Pulses equal symmetric in upper and lower extremities) Abdominal Exam Abdominal exam: Present soft; Absent distention, tenderness, guarding, rebound or pulsatile mass Extremities Exam Extremities exam: Absent edema Neurological Exam Neurological exam: Present CN II-XII intact (Grossly with patient cooperation) and other (GCS 13 for opens eyes to voice and confusion); Absent oriented X3 or motor sensory deficit Skin Skin exam: Present warm and dry; Absent diaphoresis or erythema Medical Decision Making Medical Records Medical records reviewed: Yes I reviewed the patient's medical records. Joseluis Inquiry Pt receiving controlled substance: No Joseluis was queried for this patient: No Vital Signs: 01/11/24 10:05 01/11/24 10:31 01/11/24 11:00 Temperature 100.2 F H Temperature Source Oral Pulse Rate 64 59 L Pulse Rate [Left Radial] 67 Respiratory Rate 18 21 Blood Pressure 98/78 L 114/52 L Blood Pressure [Right Arm] 107/42 L Blood Pressure Mean 72 Blood Pressure Mean [Right Arm] 63 Blood Pressure Source [Right Arm] Automatic Cuff Blood Pressure Position [Right Arm] Sitting 02 Sat by Pulse Oximetry 95 96 94 L Oxygen Delivery Method Room Air 01/11/24 11:30 01/11/24 11:52 01/11/24 12:22 Temperature Temperature Source Pulse Rate 53 L 64 60 Pulse Rate [Left Radial] Respiratory Rate 21 20 22 Blood Pressure 95/35 L 113/42 L 101/40 L Blood Pressure [Right Arm] Blood Pressure Mean Blood Pressure Mean [Right Arm] Blood Pressure Source [Right Arm] Blood Pressure Position [Right Arm] 02 Sat by Pulse Oximetry 96 95 96 Oxygen Delivery Method Room Air Room Air Room Air Lab Data Lab Results 01/11/24 10:30: WBC 5.3, RBC 3.84 L, Hgb 13.6 L, Hct 42.5, MCV 110.5 H, MCH 35.3 H, MCHC 32.0, RDW 13.8, Plt Count 192, MPV 9.2, Neut % (Auto) 52.3, Lymph % (Auto) 27.9, [place] % (Auto) 14.8 H, Eos % (Auto) 0.8, Baso % (Auto) 4.1 H, Neut # (Auto) 2.8, Lymph # (Auto) 1.5, [place] # (Auto) 0.8, Eos # (Auto) 0.0, Baso # (Auto) 0.2, ESR 42 H, PT 10.7, INR 0.95, APTT 27.3, Sodium 136, Potassium 3.4 L, Chloride 106, Carbon Dioxide 24, Anion Gap 9.4, BUN 11, Creatinine 0.70, Estimated Creat Clear 113, Estimated GFR 117, Est GFR ( Amer) 141, Glucose 131 H, Calcium 8.8, Magnesium 1.9, Total Bilirubin 0.3, AST 35, ALT 16, Alkaline Phosphatase 48, Troponin I < 0.01, Total Protein 7.2, Albumin 3.7, Globulin 3.5 H, Albumin/Globulin Ratio 1.1, TSH 3.18, Thyroxine (T4) 5.3 L, Total Valproic Acid 53.9 01/11/24 10:33: Lactate 1.3 01/11/24 10:36: VBG pH 7.36, VBG pCO2 42.5, VBG pO2 32.4, VBG HCO3 23.4, VBG Total CO2 24.7, VBG O2 Saturation 64.6, VBG Base Excess -2.0, VBG Lactic Acid 1.9 01/11/24 10:43: SARS-CoV-2 (PCR) Detected A, Influenza A Untype (PCR) Not detected, Influenza Type B (PCR) Not detected 01/11/24 11:09: Ammonia 24 01/11/24 10:30 01/11/24 10:30 Orders (Tests/Meds): ED MEDICATIONS Discontinued Medications Generic Name Dose Route Start Last Admin Trade Name Freq PRN Reason Stop Dose Admin Levetiracetam 2,000 mg/ Sodium 120 mls @ 240 mls/hr 01/11/24 10:17 01/11/24 10:37 Chloride IV 01/11/24 10:18 240 mls/hr ONCE ONE Administration ORDERS Category Date Time Status CT head/brain wo con Stat Cat Scan 01/11/24 10:18 Completed XR chest portable Stat Exams 01/11/24 10:18 Completed Ammonia Stat Lab 01/11/24 11:09 Completed Complete Blood Count Auto Diff Stat Lab 01/11/24 10:30 Completed Comprehensive Metabolic Panel Stat Lab 01/11/24 10:30 Completed Drug Screen,Urine Stat Lab 01/11/24 10:18 Ordered ESR [Erythrocyte Sedimentation Rate] Stat Lab 01/11/24 10:30 Completed Free Valproic Acid (Depakote) Routine Lab 01/11/24 10:30 Received Lactic Acid Stat Lab 01/11/24 10:33 Completed Magnesium Stat Lab 01/11/24 10:30 Completed PT INR [Prothrombin Time INR] Stat Lab 01/11/24 10:30 Completed PTT [Activated Partial Thrombo Time] Stat Lab 01/11/24 10:30 Completed Rapid PCR Covid and Flu A/B Stat Lab 01/11/24 10:43 Completed T4 (Thyroxine) Stat Lab 01/11/24 10:30 Completed TSH [Thyroid Stimulating Hormone] Stat Lab 01/11/24 10:30 Completed Troponin I Q3H Lab 01/11/24 13:30 Ordered Troponin I Q3H Lab 01/11/24 16:30 Ordered Troponin I Stat Lab 01/11/24 10:30 Completed Valproic Acid, (Depakene) Stat Lab 01/11/24 10:30 Completed Blood Culture Stat Micro 01/11/24 10:35 Received VBG [Venous Blood Gas] Stat RT 01/11/24 10:36 Completed Medical Decision Narrative: 58-year-old male presenting with seizure. Facility patient states that states the patient has not been taking his meds, they were unable to track them down, so had not been giving his seizure medications including topiramate and Depakote. Patient had seizure, defecated on himself, was found postictal this morning. EMS was called and brought in. Patient's glucose was 130 and route. On arrival, patient still postictal, disoriented. Confused. Not complaining of any pain, ranging neck without issue, pupils equal and reactive, moving all 4 extremities spontaneously. Cardiopulmonary exam within normal limits. GCS 13 for confusion and opening eyes to voice. History was obtained via conversation with EMS. Patient placed on continuous cardiac monitoring and continuous pulse ox with initial blood pressure 107/42, heart rate 67, saturation 96% on room air. Patient temperature 100.2. Independent interpretation of EKG shows sinus rhythm 64 beats a minute without ST or T wave changes concerning for acute ischemia OR, QRS, QT intervals 142, 105, 393 respectively. Patient was given 2 g Keppra, fluids for symptomatic management and correction of underlying abnormalities. Workup independently interpreted and significant for nonactionable CBC. Coags normal. VBG nonactionable. Mild hypokalemia, this was repleted p.o. Troponin negative. On independent interpretation of imaging, no acute intracranial hemorrhage. X-ray of the chest without acute intrathoracic process. See radiology read for full review of final results. Patient COVID-positive. Depakote level within normal limits. On reevaluation, patient states he is feeling much better. Wishing to go home. I feel this is appropriate. Because patient at baseline without signs or symptoms of clinical decompensation, deemed appropriate for discharge. Results were relayed to patient who voiced understanding and were agreeable to outpatient management and follow up. I discussed my clinical impression with patient and answered all questions. At this time, the evidence for any other entities in the differential is insufficient to warrant any further testing or ED observation. This was explained as well. Advisory was given that persistent or worsening symptoms require further evaluation. I confirmed the understanding of this discussion. Director Software disclaimer Much of this encounter note is an electronic cable assembler and swager spoken language to printed text. Electronic cable assembler and swager of the spoken language may permit errors. Although I have reviewed the note, some errors may still exist. Critical Care Critical Care Time Critical Care Time: No
[2024-01-11 11:06] LABS: Lactic Acid 1.3 mmol/L (0.7-2.1)
[2024-01-11 11:41] LABS: Ammonia 24 umol/L (9-30)
[2024-01-11 11:43] LABS: Alanine Aminotransferase 16 U/L (12-78); Albumin Level 3.7 g/dl (3.5-5.0); Albumin/Globulin Ratio 1.1 (1.1-1.8); Alkaline Phosphatase 48 U/L (38-126); Anion Gap 9.4 mEq/L (5-15); Aspartate Amino Transferase 35 U/L (17-59); Bilirubin,Total 0.3 mg/dl (0.2-1.3); Blood Urea Nitrogen 11 mg/dl (9-20); Calcium 8.8 mg/dl (8.4-10.2); Carbon Dioxide 24 mmol/L (22.0-30.0); Chloride 106 mmol/L (98-107); Creatinine Clearance Estimated 113 mL/min (50-200); Estimated Glomerular Filt Rate 117 ml/min (>60); GFR (African American) 141 ML/MIN (>60); Globulin 3.5 g/dL (1.3-3.2); Glucose 131 mg/dl (74-100); Magnesium 1.9 mg/dl (1.6-2.3); Potassium 3.4 mmoL/L (3.5-5.1); Sodium 136 mmol/L (136-145); Total Protein,Serum 7.2 g/dl (6.3-8.2)
[2024-01-11 11:45] LABS: Erythrocyte Sedimentation Rate 42 mm/hr (0-20)
[2024-01-11 11:47] LABS: Valproic Acid, (Depakene) 53.9 ug/ml (50-100)
[2024-01-11 11:56] LABS: Troponin I < 0.01 ng/ml (0.00-0.034)
[2024-01-11 11:59] LABS: T4 (Thyroxine) 5.3 ug/dl (5.53-11.0)
[2024-01-11 12:12] LABS: Thyroid Stimulating Hormone 3.18 uIU/mL (0.465-4.68)
[2024-01-11 12:16] LABS: Coronavirus 19, PCR Detected (NotDetected)
--- NOTE | 2024-01-11 13:00 | PC.NURSE ---
notified [facility] pt was up for discharge and ready to be picked up
== END 2024-01-11 13:36 | disposition home or self-care (01) ==
PROVIDERS: Emergency Provider Emergency Medicine
DX: U07.1 COVID-19 (principal); G40.919 Epilepsy, unspecified, intractable, without status epilepticus; F17.200 Nicotine dependence, unspecified, uncomplicated
CPT/HCPCS: 70450; 71045; 80050; 80053; 80164; 80165; 82140; 82803; 83605; 83735; 84436; 84443; 84484; 85025; 85610; 85651; 85730; 87040; 87636; 93005; 96365; 99285; J1953

== ENCOUNTER 2024-01-22 11:41 | Emergency (ER) | payer MEDICARE, MEDICAID, SELFPAY ==
[2024-01-22] VITALS (18 sets, daily range): BP systolic 99–139; BP diastolic 44–75; PULSE 49–62; RESP 16–18; TEMP 36.7; O2SAT 93–100; BMI 29.1
--- NOTE | 2024-01-22 11:44 | ECG_ITS ---
APPROVED REPORT Exam: Resting ECG HR:57 bpm ECG Measurements Heart Rate 57 AXES TX 138 P 72 QRSd 101 QRS 89 QT 399 T 67 QTc 392 Conclusion SINUS BRADYCARDIA BORDERLINE ECG Electronically signed by : JEANETTE FLORES, 01/22/2024 16:33:52
--- NOTE | 2024-01-22 12:32 | CT_ITS ---
FINAL REPORT TECHNIQUE: Thin section axial images were obtained from skull base to vertex without contrast. Coronal reconstruction images were obtained from the axial data. Exam was performed using dose reduction technique. This study was performed with techniques to keep radiation doses as low as reasonably achievable, (ALARA). Individualized dose reduction techniques using automated exposure control or adjustment of mA and/or kV according to the patient's size were employed. CLINICAL HISTORY: seizure, fall, facial trauma COMPARISON: 01/11/2024 FINDINGS: There is no mass effect or midline shift. There is no hydrocephalus. There is no intracranial hemorrhage. The posterior fossa is without acute abnormality. The basilar cisterns are preserved. There is mild soft tissue edema at the right parietal scalp. No acute osseous abnormality is identified. No evidence of skull fracture. IMPRESSION: No acute intracranial abnormality. Mild soft tissue edema without evidence of skull fracture. Reviewed, Interpreted and Dictated by Matilde Guillory MD Transcribed by Jayda Mack Authenticated and . [facility]
--- NOTE | 2024-01-22 12:32 | CT_ITS ---
FINAL REPORT TECHNIQUE: Thin section axial images were obtained through the face without contrast. Coronal reconstruction images are obtained from the axial data. This study was performed with techniques to keep radiation doses as low as reasonably achievable, (ALARA). Individualized dose reduction techniques using automated exposure control or adjustment of mA and/or kV according to the patient's size were employed. CLINICAL HISTORY: seizure, fall, facial trauma COMPARISON: None FINDINGS: There is a fracture of the tip of the nasal bone. Fracture is noted at the anterior aspect of the nasal septum. No additional facial fractures are identified. There is mucoperiosteal thickening of the left maxillary and left sphenoid sinuses. Air-fluid levels are noted in the left maxillary sinus. There is mild mucoperiosteal thickening in the frontal sinus. The visualized mastoids are clear. There is left periorbital soft tissue edema. An abrasion/soft tissue defect is noted along the nose. There is no evidence of radiopaque foreign body. IMPRESSION: Fracture tip of the nasal bone and anterior nasal septum. Acute on chronic left maxillary sinusitis. Reviewed, Interpreted and Dictated by Matilde Guillory MD Transcribed by Jayda Mack Authenticated and [facility]
--- NOTE | 2024-01-22 12:32 | CT_ITS ---
FINAL REPORT TECHNIQUE: Thin section axial images were obtained through the cervical spine without contrast. Multiplanar reconstruction images were obtained from the axial data. Exam was performed using dose reduction techniques. CLINICAL HISTORY: seizure, fall, facial trauma COMPARISON: 01/04/2024 FINDINGS: There is no acute fracture or acute malalignment of the cervical spine. There is no evidence of unilateral or bilateral facet lock. The craniocervical junction is intact. Multilevel degenerative disc disease is unchanged.. No acute paraspinal abnormality is identified. IMPRESSION: No acute osseous abnormality of the cervical spine. Reviewed, Interpreted and Dictated by Matilde Guillory MD Transcribed by Jayda Mack Authenticated and [facility]
--- NOTE | 2024-01-22 12:33 | XR_ITS ---
FINAL REPORT CLINICAL HISTORY: seizure, fall, facial trauma COMPARISON: 01/11/2024 FINDINGS: A portable view of the chest was obtained. Cardiac and mediastinal silhouettes are within normal limits. There is a new right basilar opacity which is likely atelectasis. There is underlying emphysema. There is no pleural effusion or pneumothorax. IMPRESSION: New right basilar opacity, likely atelectasis. Emphysema Reviewed, Interpreted and Dictated by Matilde Guillory MD Transcribed by Nataly Hartmann Authenticated and . [facility]
[2024-01-22 13:27] LABS: Microscopic, Urine URINE MICROSCOPIC (MICROSCOPIC)
[2024-01-22 13:31] LABS: Appearance,Urine CLEAR (Clear); Bilirubin,Urine Negative (Negative); Blood, Urine Negative (Negative); Color,Urine YELLOW (Yellow); Glucose,Urine (UA) Negative (Negative); Ketones,Urine Negative (Negative); Leukocyte Esterase,Urine Negative (Negative); Nitrate,Urine Negative (Negative); PH,Urine 7.5 (5.0-8.5); Protein,Urine Negative (Negative); Urobilinogen,Urine 0.2 EU/dl (0.2)
--- NOTE | 2024-01-22 13:31 | HMH.EDGENADL ---
Discharge Plan Disposition Patient Disposition: Home, Self-Care Chief Complaint: Seizure Prescriptions Prescriptions: No Action sertraline [Zoloft] 100 mg Tablet 200 mg PO DAILY atorvastatin 80 mg Tablet 80 mg PO HS meloxicam 15 mg Tablet 15 mg PO DAILY divalproex [Depakote ER] 500 mg Tablet Extended Release 24 Hr 750 mg PO BID topiramate 200 mg Tablet 200 mg PO BID thiamine HCl (vitamin B1) [Vitamin B-1] 100 mg Tablet 100 mg PO DAILY albuterol 90 mcg/actuation Aerosol 2 mcg INHALATION NEEDED PRN (Reason: soa) cephalexin 500 mg capsule 500 mg PO BID 7 Days Qty: 14 0RF erythromycin 5 mg/gram (0.5 %) ointment 1 applic ophthalmic (eye) BID Qty: 3.5 0RF Activity Restrictions/Add. Instructions Additional Instructions/Restrictions: You were evaluated in the emergency department today. It is imperative that you follow-up very closely with your neurologist and primary care provider who prescribes your medications to have adjustments made to your chronic maintenance seizure medications. They would likely increase your dosages given that you are having breakthrough seizures so frequently. Refrain from alcohol and drug use. Seizure precautions - do not do any of these activities until cleared by your neurologist: 1) avoid sleep deprivation 2) avoid open bodies of water and open flames 3) avoid swimming alone 4) take showers, do not take baths 5) avoid any situation where loss of consciousness may predispose to injury or 6) avoid driving Clinical Impressions Clinical Impression: Breakthrough seizure, Abrasion of forehead Instructions Patient Instructions: DI for Seizure Disorder -- Adult Print Language Print Language: Malaysian Discharge ED Provider: Sukhi Randall General Adult HPI <Noemi Lucero DO - Last Filed: 01/22/24 15:47> General Chief complaint: Seizure Stated complaint: Seizure Time Seen by Provider: 01/22/24 11:52 Mode of Arrival: EMS Source of Information: EMS and Medical Record Limitations: Altered Mental Status Description of Symptoms (Recalled from ER Triage Doc. by RN): per ems pt was found by the bathroom at the facility he lives in and appeared to have had a seizure. Laceration noted to left eyebrow. History of Present Illness HPI narrative: This patient is a 58-year-old male with history of known seizure disorder on Depakote and Topamax presenting to the emergency department for evaluation with concern for breakthrough seizure. On medical record review, he has been seen at least once a week for this over the last 2 weeks. He is also been seen for alcohol intoxication. He presents from [facility] with concern for witnessed seizure. EMS notes the patient was postictal upon their arrival. Fingerstick normal. He does have a laceration to the left eyebrow. Patient arrives postictal and does not contribute to history. Related Data Home Medications ?Medication ?Instructions ?Recorded ?Confirmed albuterol 90 mcg/actuation aerosol 2 mcg inhalation NEEDED PRN soa 10/25/23 10/25/23 inhaler atorvastatin 80 mg tablet 80 mg PO HS 10/25/23 10/25/23 divalproex 500 mg tablet,extended 750 mg PO BID 10/25/23 10/25/23 release 24 hr (Depakote ER) meloxicam 15 mg tablet 15 mg PO DAILY 10/25/23 10/25/23 sertraline 100 mg tablet (Zoloft) 200 mg PO DAILY 10/25/23 10/25/23 thiamine HCl (vitamin B1) 100 mg 100 mg PO DAILY 10/25/23 10/25/23 tablet (Vitamin B-1) topiramate 200 mg tablet 200 mg PO BID 10/25/23 10/25/23 Previous Rx's ?Medication ?Instructions ?Recorded cephalexin 500 mg capsule 500 mg PO BID 7 days #14 caps 11/26/23 erythromycin 5 mg/gram (0.5 %) eye 1 applic ophthalmic (eye) BID #3.5 11/26/23 ointment grams Allergies Allergy/AdvReac Type Severity Reaction Status Date / Time No Known Allergies Allergy Verified 12/08/23 18:21 [facility] <Noemi Lucero DO - Last Filed: 01/22/24 15:47> [facility] Disclaimer: The information contained in this section may have been updated after the patient was seen, as this information can be updated by other users. Medical History Seizures Surgical History H/O heart artery stent Social History Smoking Status: Current every day smoker alcohol intake: never current occupational status: unemployed Travel in the last 8 weeks: None <Noemi Lucero DO - Last Filed: 01/22/24 15:47> ROS Obtained: Yes All systems reviewed & no additional complaints except as documented Physical Exam <Noemi Lucero DO - Last Filed: 01/22/24 15:47> General General appearance: in no apparent distress and lethargic Comment: Sleeping but arouses to repetitive stimuli Head Head exam: normocephalic and other (1 cm abrasion of the left eyebrow and some dried blood about the nose) Eye Eye exam: Present normal appearance, PERRL and EOMI ENT ENT exam: Present normal exam, normal oropharynx, mucous membranes moist and normal external ear exam Neck Neck exam: Present normal inspection, full ROM and trachea midline; Absent tenderness Chest Chest inspection: Present normal inspection and symmetric chest wall rise; Absent tenderness Respiratory Respiratory exam: Present normal lung sounds bilaterally; Absent respiratory distress, wheezes, stridor or accessory muscle use Cardiovascular Cardiovascular exam: Present regular rate and normal rhythm Abdominal Exam Abdominal exam: Present soft; Absent distention, tenderness or guarding Extremities Exam Extremities exam: Present normal inspection, full ROM and normal capillary refill; Absent tenderness or edema Back Exam Back exam: Present normal inspection and full ROM; Absent tenderness Neurological Exam Neurological exam: Present motor sensory deficit and other; Absent alert or oriented X3 Expanded Neurological Exam Coma scale eye opening: To voice Coma scale motor response: Localizes to pain Coma scale verbal response: Incomprehensible Coma scale total: 10 Skin Skin exam: Present warm and dry <Sukhi Randall MD - Last Filed: 01/22/24 15:59> Expanded Neurological Exam Coma scale total: 10 Medical Decision Making <Noemi Lucero DO - Last Filed: 01/22/24 15:47> Medical Records Medical records reviewed: Yes I reviewed the patient's medical records. Joseluis Inquiry Pt receiving controlled substance: No Vital Signs: 01/22/24 11:41 01/22/24 12:00 01/22/24 12:15 Temperature 98.1 F Temperature Source Oral Pulse Rate 62 61 Pulse Rate [Left Radial] 62 Respiratory Rate 18 Blood Pressure 110/60 104/55 L Blood Pressure [Right Arm] 99/55 L Blood Pressure Mean 71 66 Blood Pressure Mean [Right Arm] 69 Blood Pressure Source [Right Arm] Automatic Cuff Blood Pressure Position [Right Arm] Sitting 02 Sat by Pulse Oximetry 95 95 94 L Oxygen Delivery Method Room Air Room Air Room Air 01/22/24 12:30 01/22/24 13:16 01/22/24 13:30 Temperature Temperature Source Pulse Rate 58 L 53 L 52 L Pulse Rate [Left Radial] Respiratory Rate Blood Pressure 109/51 L 105/44 L 105/57 L Blood Pressure [Right Arm] Blood Pressure Mean 65 63 69 Blood Pressure Mean [Right Arm] Blood Pressure Source [Right Arm] Blood Pressure Position [Right Arm] 02 Sat by Pulse Oximetry 93 L 97 98 Oxygen Delivery Method Room Air Room Air Room Air 01/22/24 13:45 01/22/24 14:00 01/22/24 14:15 Temperature Temperature Source Pulse Rate 53 L 49 L 51 L Pulse Rate [Left Radial] Respiratory Rate Blood Pressure 105/60 L 106/57 L 117/60 Blood Pressure [Right Arm] Blood Pressure Mean 71 75 78 Blood Pressure Mean [Right Arm] Blood Pressure Source [Right Arm] Blood Pressure Position [Right Arm] 02 Sat by Pulse Oximetry 97 98 96 Oxygen Delivery Method Room Air Room Air Room Air 01/22/24 14:30 01/22/24 14:45 01/22/24 15:00 Temperature Temperature Source Pulse Rate 52 L 50 L 51 L Pulse Rate [Left Radial] Respiratory Rate Blood Pressure 108/54 L 108/63 L 122/61 Blood Pressure [Right Arm] Blood Pressure Mean 72 74 83 Blood Pressure Mean [Right Arm] Blood Pressure Source [Right Arm] Blood Pressure Position [Right Arm] 02 Sat by Pulse Oximetry 97 97 97 Oxygen Delivery Method Room Air Room Air Room Air Lab Data Lab results reviewed: Yes I reviewed the patient's lab results. Lab Results 01/22/24 13:18: Urine Color Yellow, Urine Appearance Clear, Urine pH 7.5, Ur Specific [place] 1.020, Urine Protein Negative, Urine Glucose (UA) Negative, Urine Ketones Negative, Urine Blood Negative, Urine Nitrate Negative, Urine Bilirubin Negative, Urine Urobilinogen 0.2, Ur Leukocyte Esterase Negative, Urine RBC None, Urine WBC None, Ur Squamous Epith Cells None, Urine Bacteria None, Urine Opiates Screen Negative, Urine Methadone Screen Negative, Ur Barbituates Screen Negative, Ur Phencyclidine Scrn Negative, Ur Amphetamines Screen Negative, U Benzodiazepines Scrn Negative, Urine Cocaine Screen Negative, U Marijuana (THC) Screen Positive H 01/22/24 13:23: WBC 6.1, RBC 3.27 L, Hgb 11.4 L, Hct 35.4 L, MCV 108.1 H, MCH 34.9 H, MCHC 32.3, RDW 13.7, Plt Count 366, MPV 8.3, Neut % (Auto) 55.3, Lymph % (Auto) 33.1, [place] % (Auto) 9.4 H, Eos % (Auto) 1.9, Baso % (Auto) 0.4, Neut # (Auto) 3.4, Lymph # (Auto) 2.0, [place] # (Auto) 0.6, Eos # (Auto) 0.1, Baso # (Auto) 0.0, PT 10.4, INR 0.92, APTT 26.2, Sodium 140, Potassium 3.9, Chloride 112 H, Carbon Dioxide 27, Anion Gap 4.9 L, BUN 9, Creatinine 0.70, Estimated Creat Clear 163, Estimated GFR 117, Est GFR ( Amer) 141, Glucose 109 H, Calcium 8.7, Total Bilirubin 0.3, AST 26, ALT 12, Alkaline Phosphatase 59, Total Protein 6.9, Albumin 3.7, Globulin 3.2, Albumin/Globulin Ratio 1.2, Salicylates < 1.0 L, Acetaminophen < 10 L, Plasma/Serum Alcohol < 10 01/22/24 13:23 01/22/24 13:23 Orders (Tests/Meds): ED MEDICATIONS Discontinued Medications Generic Name Dose Route Start Last Admin Trade Name Willemq PRN Reason Stop Dose Admin Levetiracetam 2,000 mg/ Sodium 120 mls @ 240 mls/hr 01/22/24 15:55 Chloride IV 01/22/24 15:56 ONCE ONE Tetanus/Reduced Diphtheria/Acell Pertussis 0.5 ml 01/22/24 13:33 01/22/24 13:46 Tet/Diphth/Pert-Adult 0.5ml Syringe IM 01/22/24 13:34 0.5 ml .ONCE ONE Administration ORDERS Category Date Time Status CT cervical spine wo con Stat Cat Scan 01/22/24 12:[address] facial bones wo con Stat Cat Scan 01/22/24 12:[address] head/brain wo con Stat Cat Scan 01/22/24 12:32 Completed CXR --portable [XR chest portable] Stat Exams 01/22/24 12:33 Completed Acetaminophen Stat Lab 01/22/24 13:23 Completed CBC w/Auto Diff [Complete Blood Count Auto Diff] Stat Lab 01/22/24 13:23 Completed CMP [Comprehensive Metabolic Panel] Stat Lab 01/22/24 13:23 Completed Ethyl Alcohol Stat Lab 01/22/24 13:23 Completed Free Valproic Acid (Depakote) Routine Lab 01/22/24 13:23 Received PT INR [Prothrombin Time INR] Stat Lab 01/22/24 13:23 Completed PTT [Activated Partial Thrombo Time] Stat Lab 01/22/24 13:23 Completed Salicylate Stat Lab 01/22/24 13:23 Completed UA [Urinalysis and Microscopic] Stat Lab 01/22/24 13:18 Completed UDS [Drug Screen,Urine] Stat Lab 01/22/24 13:18 Completed ECG Data Tracing #1: I reviewed this ECG and interpreted as documented below: Sinus bradycardia with a ventricular to [address] changes concerning for ischemia. Normal axis and intervals ECG initial impression date: 01/22/24 ECG initial impression time: 11:45 Medical Decision Narrative: In summary, this patient is a 58-year-old male presenting to the Emergency Department for evaluation of seizure in the setting of known seizure disorder. Differential diagnoses considered include but are not limited to breakthrough seizure, medication noncompliance, substance-induced seizure, electrolyte derangements, hypoglycemia. Ruling out the most morbid conditions drove assessment. It should be noted patient's history includes seizure disorder which is not at goal therapy. This complicates all aspects of care by increasing patient's risk for morbidity. I reviewed patient's past medical records and noted previous evaluations for seizures as well as for alcohol abuse in the past. On exam, patient is GCS of 10 without obvious focal deficit. He does have an abrasion of the left eyebrow. Workup included CT head and C-spine without contrast, chest x-ray, and lab evaluation to evaluate for infectious, metabolic, and substance-induced causes of the patient's breakthrough seizure. He was given Tdap booster. I independently interpreted CT scans prior to the radiologist read and noted patient has a nasal bone fracture which is known, as he was recently seen at for this. No obvious acute change on my independent interpretation. Please see their read for final interpretation. Labs were obtained that demonstrated no acutely concerning abnormalities at this time. Patient's abrasion was cleaned and does not require further repair upon my assessment of it. Patient had continual improvement of his mental status and returned to his neurologic baseline as per medical record review. It is imperative that he follow-up very closely outpatient for further management of his chronic maintenance medications. Ultimately, patient care signed to the oncoming provider, Dr. Randall pending his ability to ambulate, tolerate oral intake, and likely discharge home. <Sukhi Randall MD - Last Filed: 01/22/24 15:59> Vital Signs: 01/22/24 11:41 01/22/24 12:00 01/22/24 12:15 Temperature 98.1 F Temperature Source Oral Pulse Rate 62 61 Pulse Rate [Left Radial] 62 Respiratory Rate 18 Blood Pressure 110/60 104/55 L Blood Pressure [Right Arm] 99/55 L Blood Pressure Mean 71 66 Blood Pressure Mean [Right Arm] 69 Blood Pressure Source [Right Arm] Automatic Cuff Blood Pressure Position [Right Arm] Sitting 02 Sat by Pulse Oximetry 95 95 94 L Oxygen Delivery Method Room Air Room Air Room Air 01/22/24 12:30 01/22/24 13:16 01/22/24 13:30 Temperature Temperature Source Pulse Rate 58 L 53 L 52 L Pulse Rate [Left Radial] Respiratory Rate Blood Pressure 109/51 L 105/44 L 105/57 L Blood Pressure [Right Arm] Blood Pressure Mean 65 63 69 Blood Pressure Mean [Right Arm] Blood Pressure Source [Right Arm] Blood Pressure Position [Right Arm] 02 Sat by Pulse Oximetry 93 L 97 98 Oxygen Delivery Method Room Air Room Air Room Air 01/22/24 13:45 01/22/24 14:00 01/22/24 14:15 Temperature Temperature Source Pulse Rate 53 L 49 L 51 L Pulse Rate [Left Radial] Respiratory Rate Blood Pressure 105/60 L 106/57 L 117/60 Blood Pressure [Right Arm] Blood Pressure Mean 71 75 78 Blood Pressure Mean [Right Arm] Blood Pressure Source [Right Arm] Blood Pressure Position [Right Arm] 02 Sat by Pulse Oximetry 97 98 96 Oxygen Delivery Method Room Air Room Air Room Air 01/22/24 14:30 01/22/24 14:45 01/22/24 15:00 Temperature Temperature Source Pulse Rate 52 L 50 L 51 L Pulse Rate [Left Radial] Respiratory Rate Blood Pressure 108/54 L 108/63 L 122/61 Blood Pressure [Right Arm] Blood Pressure Mean 72 74 83 Blood Pressure Mean [Right Arm] Blood Pressure Source [Right Arm] Blood Pressure Position [Right Arm] 02 Sat by Pulse Oximetry 97 97 97 Oxygen Delivery Method Room Air Room Air Room Air Lab Data Lab Results 01/22/24 13:18: Urine Color Yellow, Urine Appearance Clear, Urine pH 7.5, Ur Specific [place] 1.020, Urine Protein Negative, Urine Glucose (UA) Negative, Urine Ketones Negative, Urine Blood Negative, Urine Nitrate Negative, Urine Bilirubin Negative, Urine Urobilinogen 0.2, Ur Leukocyte Esterase Negative, Urine RBC None, Urine WBC None, Ur Squamous Epith Cells None, Urine Bacteria None, Urine Opiates Screen Negative, Urine Methadone Screen Negative, Ur Barbituates Screen Negative, Ur Phencyclidine Scrn Negative, Ur Amphetamines Screen Negative, U Benzodiazepines Scrn Negative, Urine Cocaine Screen Negative, U Marijuana (THC) Screen Positive H 01/22/24 13:23: WBC 6.1, RBC 3.27 L, Hgb 11.4 L, Hct 35.4 L, MCV 108.1 H, MCH 34.9 H, MCHC 32.3, RDW 13.7, Plt Count 366, MPV 8.3, Neut % (Auto) 55.3, Lymph % (Auto) 33.1, [place] % (Auto) 9.4 H, Eos % (Auto) 1.9, Baso % (Auto) 0.4, Neut # (Auto) 3.4, Lymph # (Auto) 2.0, [place] # (Auto) 0.6, Eos # (Auto) 0.1, Baso # (Auto) 0.0, PT 10.4, INR 0.92, APTT 26.2, Sodium 140, Potassium 3.9, Chloride 112 H, Carbon Dioxide 27, Anion Gap 4.9 L, BUN 9, Creatinine 0.70, Estimated Creat Clear 163, Estimated GFR 117, Est GFR ( Amer) 141, Glucose 109 H, Calcium 8.7, Total Bilirubin 0.3, AST 26, ALT 12, Alkaline Phosphatase 59, Total Protein 6.9, Albumin 3.7, Globulin 3.2, Albumin/Globulin Ratio 1.2, Salicylates < 1.0 L, Acetaminophen < 10 L, Plasma/Serum Alcohol < 10 Orders (Tests/Meds): ED MEDICATIONS Discontinued Medications Generic Name Dose Route Start Last Admin Trade Name Eleno PRN Reason Stop Dose Admin Levetiracetam 2,000 mg/ Sodium 120 mls @ 240 mls/hr 01/22/24 15:55 Chloride IV 01/22/24 15:56 ONCE ONE Tetanus/Reduced Diphtheria/Acell Pertussis 0.5 ml 01/22/24 13:33 01/22/24 13:46 Tet/Diphth/Pert-Adult 0.5ml Syringe IM 01/22/24 13:34 0.5 ml .ONCE ONE Administration ORDERS Category Date Time Status CT cervical spine wo con Stat Cat Scan 01/22/24 12:[address] facial bones wo con Stat Cat Scan 01/22/24 12:[address] head/brain wo con Stat Cat Scan 01/22/24 12:32 Completed CXR --portable [XR chest portable] Stat Exams 01/22/24 12:33 Completed Acetaminophen Stat Lab 01/22/24 13:23 Completed CBC w/Auto Diff [Complete Blood Count Auto Diff] Stat Lab 01/22/24 13:23 Completed CMP [Comprehensive Metabolic Panel] Stat Lab 01/22/24 13:23 Completed Ethyl Alcohol Stat Lab 01/22/24 13:23 Completed Free Valproic Acid (Depakote) Routine Lab 01/22/24 13:23 Received PT INR [Prothrombin Time INR] Stat Lab 01/22/24 13:23 Completed PTT [Activated Partial Thrombo Time] Stat Lab 01/22/24 13:23 Completed Salicylate Stat Lab 01/22/24 13:23 Completed UA [Urinalysis and Microscopic] Stat Lab 01/22/24 13:18 Completed UDS [Drug Screen,Urine] Stat Lab 01/22/24 13:18 Completed Medical Decision Narrative: In summary, this patient is a 58-year-old male presenting to the Emergency Department for evaluation of seizure in the setting of known seizure disorder. Differential diagnoses considered include but are not limited to breakthrough seizure, medication noncompliance, substance-induced seizure, electrolyte derangements, hypoglycemia. Ruling out the most morbid conditions drove assessment. It should be noted patient's history includes seizure disorder which is not at goal therapy. This complicates all aspects of care by increasing patient's risk for morbidity. I reviewed patient's past medical records and noted previous evaluations for seizures as well as for alcohol abuse in the past. On exam, patient is GCS of 10 without obvious focal deficit. He does have an abrasion of the left eyebrow. Workup included CT head and C-spine without contrast, chest x-ray, and lab evaluation to evaluate for infectious, metabolic, and substance-induced causes of the patient's breakthrough seizure. He was given Tdap booster. I independently interpreted CT scans prior to the radiologist read and noted patient has a nasal bone fracture which is known, as he was recently seen at for this. No obvious acute change on my independent interpretation. Please see their read for final interpretation. Labs were obtained that demonstrated no acutely concerning abnormalities at this time. Patient's abrasion was cleaned and does not require further repair upon my assessment of it. Patient had continual improvement of his mental status and returned to his neurologic baseline as per medical record review. It is imperative that he follow-up very closely outpatient for further management of his chronic maintenance medications. Ultimately, patient care signed to the oncoming provider, Dr. Randall pending his ability to ambulate, tolerate oral intake, and likely discharge home. Sukhi Randall: Upon assumption of care patient is hemodynamically stable. Patient has known seizure disorder with intermittent breakthrough seizures. He has recently had medication adjusted. Upon my evaluation patient is GCS 15, ambulatory bedside, tolerating p.o. He is wishing to leave at this time and I feel that this is appropriate. Patient was given 2 g of Keppra prior to his discharge and he will be compliant with his medications and outpatient basis. Patient states that he can call his neurologist and arrange follow-up which I feel is also reasonable. Patient was given return precautions. Critical Care <Noemi Lucero, DO - Last Filed: 01/22/24 15:47> Critical Care Time Critical Care Time: No
[2024-01-22 13:34] LABS: Basophils % 0.4 % (0.1-2.0); Eosinophils # 0.1 K/mm3 (0.0-0.4); Eosinophils % 1.9 % (0.1-12.0); Hematocrit 35.4 % (42.0-52.0); Hemoglobin 11.4 g/dL (14.1-18.0); Lymphocytes % 33.1 % (10-50); Mean Corpuscular HGB Conc 32.3 g/dL (31.8-35.4); Mean Corpuscular Hemoglobin 34.9 pg (27.0-31.2); Mean Corpuscular Volume 108.1 fl (80-94); Mean Platelet Volume 8.3 fl (7.4-10.4); Monocytes # 0.6 K/mm3 (0.1-1.0); Monocytes % 9.4 % (1.7-9.3); Neutrophils # 3.4 K/mm3 (1.8-7.8); Neutrophils % 55.3 % (37.0-80.0); Platelet Count 366 K/mm3 (142-424); Red Blood Count 3.27 M/mm3 (4.60-6.20); Red Cell Distribution Width 13.7 % (11.5-17.5); White Blood Count 6.1 K/mm3 (4.8-10.8)
[2024-01-22 13:39] LABS: Albumin Level 3.7 g/dl (3.5-5.0); Chloride 112 mmol/L (98-107)
[2024-01-22 13:40] LABS: Potassium 3.9 mmoL/L (3.5-5.1); Sodium 140 mmol/L (136-145)
[2024-01-22 13:42] LABS: Alanine Aminotransferase 12 U/L (12-78); Anion Gap 4.9 mEq/L (5-15); Aspartate Amino Transferase 26 U/L (17-59); Blood Urea Nitrogen 9 mg/dl (9-20); Carbon Dioxide 27 mmol/L (22.0-30.0); Creatinine Clearance Estimated 163 mL/min (50-200); Estimated Glomerular Filt Rate 117 ml/min (>60); GFR (African American) 141 ML/MIN (>60)
[2024-01-22 13:43] LABS: Activated Partial Thrombo Time 26.2 seconds (22.8-30.6); Albumin/Globulin Ratio 1.2 (1.1-1.8); Alkaline Phosphatase 59 U/L (38-126); Bilirubin,Total 0.3 mg/dl (0.2-1.3); Calcium 8.7 mg/dl (8.4-10.2); Globulin 3.2 g/dL (1.3-3.2); Glucose 109 mg/dl (74-100); INR 0.92 (0.9-1.1); Prothrombin Time 10.4 seconds (10.1-12.5); Total Protein,Serum 6.9 g/dl (6.3-8.2)
[2024-01-22 13:45] LABS: Acetaminophen < 10 ug/ml (10-30); Ethyl Alcohol < 10 mg/dl (0-10); Salicylate < 1.0 mg/dL (2.0-20.0)
[2024-01-22 13:45] LABS: Barbiturates Screen,Urine Negative ng/ml (<200)
[2024-01-22 13:46] LABS: Benzodiazepines Screen,Urine Negative ng/ml (<200)
[2024-01-22] MEDS: TET/DIPHTH/PERT-ADULT 0.5ML SYRINGE 0.5 ML IM (13:46)
[2024-01-22 13:47] LABS: Amphetamine/Metha Screen,Urine Negative ng/ml (<1000)
[2024-01-22 13:48] LABS: Cocaine Screen,Urine Negative ng/ml (<300)
[2024-01-22 13:49] LABS: Cannabinoid Screen,Urine Positive ng/ml (<50); Methadone Screen,Urine Negative ng/ml (<300)
[2024-01-22 13:50] LABS: Opiate Screen,Urine Negative ng/ml (<300)
[2024-01-22 13:54] LABS: Phencyclidine Screen,Urine Negative ng/ml (<25)
[2024-01-22] MEDS: levETIRAcetam 2,000 MG in 0.9 % SODIUM CHLORIDE 100 ML 240 MG IV (16:08)
--- NOTE | 2024-01-22 16:18 | PC.NURSE ---
[facility] notified that pt is ready to come back to their facility. They advised they will send someone to pick him up now
--- NOTE | 2024-01-22 17:20 | PC.NURSE ---
Attempted to call [facility] multiple times with no answer. Spoke to Ant De Oliveira and they advised they would send someone up to take pt back to [facility].
== END 2024-01-22 17:51 | disposition home or self-care (01) ==
PROVIDERS: Emergency Medicine; Emergency Provider Emergency Medicine
DX: G40.909 Epilepsy, unspecified, not intractable, without status epilepticus (principal); S00.81XA Abrasion of other part of head, initial encounter; R00.1 Bradycardia, unspecified; W19.XXXA Unspecified fall, initial encounter; Z23 Encounter for immunization
CPT/HCPCS: 70450; 70486; 71045; 72125; 80053; 80165; 80307; 80320; 80329; 81001; 85025; 85610; 85730; 90471; 90715; 93005; 96374; 99285; G0480; J1953

== ENCOUNTER 2024-01-25 19:34 | Emergency (ER) | payer MEDICARE, MEDICAID, SELFPAY ==
[2024-01-25 19:34] VITALS: BP 110/58; PULSE 61; RESP 18; TEMP 36.7; O2SAT 98; BMI 19.0
--- NOTE | 2024-01-25 19:46 | XR_ITS ---
PROCEDURE INFORMATION: Exam: XR Right Hand Exam date and time: 01/25/2024 8:41 PM Age: 58 years old Clinical indication: Pain; Hand; Right; Additional info: Pain, punched door TECHNIQUE: Imaging protocol: Radiologic exam of the right hand. Views: 3 or more views. Total images: 3 COMPARISON: No relevant prior studies available. FINDINGS: Bones/joints: No acute fracture or dislocation. Osseous demineralization with a juxtaarticular pattern, which can be seen with reflex sympathetic dystrophy. Mild scattered degenerative changes of the interphalangeal joints. Soft tissues: Unremarkable soft tissues. IMPRESSION: 1. No acute osseous abnormality. 2. Osseous demineralization with distribution concerning RSD
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
--- NOTE | 2024-01-25 21:39 | PC.NURSE ---
Rounded on patient, patient resting with eyes closed, respirations even and unlabored. No acute distress noted. Awaiting xray reads. Call light within reach, chair locked, patient reclined.
--- NOTE | 2024-01-25 21:46 | PC.NURSE ---
[facility] notified that patient is ready to go back.
[2024-01-25 21:50] VITALS: BP 111/52; PULSE 53; RESP 16; TEMP 36.8; O2SAT 99
== END 2024-01-25 21:52 | disposition home or self-care (01) ==
PROVIDERS: Emergency Provider Emergency Medicine; PCP Internal Medicine Adolescent Medicine
DX: S60.221A Contusion of right hand, initial encounter (principal); G40.909 Epilepsy, unspecified, not intractable, without status epilepticus; F10.10 Alcohol abuse, uncomplicated; F17.200 Nicotine dependence, unspecified, uncomplicated; W22.8XXA Striking against or struck by other objects, initial encounter; Y92.9 Unspecified place or not applicable
CPT/HCPCS: 73130; 99283

== ENCOUNTER 2024-02-09 13:03 | Emergency (ER) | payer MEDICARE, MEDICAID, SELFPAY ==
[2024-02-09 13:03] VITALS: BP 128/78; PULSE 71; RESP 16; TEMP 36.7; O2SAT 98; BMI 22.4
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
--- NOTE | 2024-02-09 13:08 | ECG_ITS ---
APPROVED REPORT Exam: Resting ECG HR:63 bpm ECG Measurements Heart Rate 63 AXES DE 126 P 88 QRSd 105 QRS 85 QT 412 T 72 QTc 420 Conclusion SINUS RHYTHM NORMAL ECG No changes from prior EKG Electronically signed by : JEANETTE FLORES, 02/09/2024 14:34:15
[2024-02-09 13:31] VITALS: BP 126/67; PULSE 66; RESP 17; O2SAT 94
[2024-02-09 14:00] VITALS: BP 133/65; PULSE 59; RESP 15; O2SAT 97
[2024-02-09 14:31] VITALS: BP 128/66; PULSE 58; O2SAT 95
[2024-02-09 14:38] LABS: Chloride 104 mmol/L (98-107)
[2024-02-09 14:39] LABS: Albumin Level 4.2 g/dl (3.5-5.0); Basophils # 0.1 K/mm3 (0-0.2); Basophils % 0.9 % (0.1-2.0); Eosinophils # 0.1 K/mm3 (0.0-0.4); Eosinophils % 1.4 % (0.1-12.0); Hematocrit 40.7 % (42.0-52.0); Hemoglobin 13.8 g/dL (14.1-18.0); Lymphocytes # 2.5 K/mm3 (0.7-4.5); Lymphocytes % 41.2 % (10-50); Mean Corpuscular HGB Conc 33.8 g/dL (31.8-35.4); Mean Corpuscular Hemoglobin 35.5 pg (27.0-31.2); Mean Corpuscular Volume 105.2 fl (80-94); Mean Platelet Volume 8.3 fl (7.4-10.4); Monocytes # 0.5 K/mm3 (0.1-1.0); Monocytes % 8.8 % (1.7-9.3); Neutrophils # 2.9 K/mm3 (1.8-7.8); Neutrophils % 47.7 % (37.0-80.0); Platelet Count 228 K/mm3 (142-424); Potassium 5.1 mmoL/L (3.5-5.1); Red Blood Count 3.87 M/mm3 (4.60-6.20); Red Cell Distribution Width 13.8 % (11.5-17.5); Sodium 139 mmol/L (136-145)
[2024-02-09 14:42] LABS: Alanine Aminotransferase 19 U/L (12-78); Albumin/Globulin Ratio 1.1 (1.1-1.8); Alkaline Phosphatase 73 U/L (38-126); Anion Gap 9.1 mEq/L (5-15); Aspartate Amino Transferase 36 U/L (17-59); Bilirubin,Total 0.5 mg/dl (0.2-1.3); Blood Urea Nitrogen 18 mg/dl (9-20); Calcium 9.2 mg/dl (8.4-10.2); Carbon Dioxide 31 mmol/L (22.0-30.0); Creatinine Clearance Estimated 103 mL/min (50-200); Estimated Glomerular Filt Rate 87 ml/min (>60); GFR (African American) 106 ML/MIN (>60); Globulin 3.7 g/dL (1.3-3.2); Glucose 117 mg/dl (74-100); Total Protein,Serum 7.9 g/dl (6.3-8.2)
[2024-02-09 14:43] LABS: Acetaminophen < 10 ug/ml (10-30); Salicylate < 1.0 mg/dL (2.0-20.0)
--- NOTE | 2024-02-09 14:44 | PC.NURSE ---
rounded on patient, patient voiced that he didn't need anything at this moment.
--- NOTE | 2024-02-09 15:00 | PC.NURSE ---
I took the pt crackers, peanut butter and water to [facility]. no needs voiced. call samson in reach.
[2024-02-09 15:02] VITALS: BP 150/66; PULSE 75; O2SAT 96
--- NOTE | 2024-02-09 15:19 | PC.NURSE ---
I spoke with Angeli at [facility] and informed her the pt is ready for d/c. She states she will send someone up to pick the pt up.
[2024-02-09 15:20] VITALS: BP 150/66; PULSE 84; RESP 18; TEMP 37; O2SAT 97
[2024-02-09 15:30] LABS: Ethyl Alcohol < 10 mg/dl (0-10)
[2024-02-09 15:57] LABS: HIV (1&2) Antibody Rapid NONREACTIVE (NONREACTIVE)
[2024-02-11 09:09] LABS: HCV Ab Non Reactive (Non Reactive)
== END 2024-02-09 15:45 | disposition other institution (70) ==
PROVIDERS: Emergency Provider Emergency Medicine; PCP Internal Medicine Adolescent Medicine
DX: F12.129 Cannabis abuse with intoxication, unspecified (principal)
CPT/HCPCS: 80053; 80320; 80329; 85025; 86803; 87389; 93005; 99283; G0480

== ENCOUNTER 2024-02-21 14:28 | Emergency (ER) | payer MEDICARE, MEDICAID, SELFPAY ==
[2024-02-21] VITALS (8 sets, daily range): BP systolic 102–130; BP diastolic 48–78; PULSE 63–86; RESP 13–20; TEMP 36.6–36.8; O2SAT 95–97; BMI 25.0
--- NOTE | 2024-02-21 14:31 | HMH.EDGENADL ---
Discharge Plan Disposition Patient Disposition: Home, Self-Care Condition: Good Prescriptions Prescriptions: No Action sertraline [Zoloft] 100 mg Tablet 200 mg PO DAILY atorvastatin 80 mg Tablet 80 mg PO HS meloxicam 15 mg Tablet 15 mg PO DAILY divalproex [Depakote ER] 500 mg Tablet Extended Release 24 Hr 1,000 mg PO BID topiramate 200 mg Tablet 200 mg PO BID thiamine HCl (vitamin B1) [Vitamin B-1] 100 mg Tablet 100 mg PO DAILY albuterol 90 mcg/actuation Aerosol 2 mcg INHALATION NEEDED PRN (Reason: soa) cephalexin 500 mg capsule 500 mg PO BID 7 Days Qty: 14 0RF erythromycin 5 mg/gram (0.5 %) ointment 1 applic ophthalmic (eye) BID Qty: 3.5 0RF lacosamide [Vimpat] 200 mg Tablet 200 mg PO BID Referrals Follow up/Referrals: Provider,Referral, MD [Referring] - See instructions Activity Restrictions/Add. Instructions Additional Instructions/Restrictions: You were evaluated in the emergency department today. Please stop using drugs, as this can lower your seizure threshold and also can interact with your seizure medications. Please continue taking your seizure medications as prescribed. Follow-up closely with your primary care provider and your neurology team at . Return to the emergency department for new or worsening symptoms. Clinical Impressions Clinical Impression: Marijuana abuse Instructions Patient Instructions: DI for Seizure Disorder -- Adult, DI for Substance Use Disorder Print Language Print Language: Azeri Discharge ED Provider: Noemi Lucero General Adult HPI <OLIVA Roman - Last Filed: 02/21/24 14:33> General Chief complaint: Weakness Stated complaint: Weakness Time Seen by Provider: 02/21/24 14:31 Related Data Home Medications ?Medication ?Instructions ?Recorded ?Confirmed albuterol 90 mcg/actuation aerosol 2 mcg inhalation NEEDED PRN soa 10/25/23 10/25/23 inhaler atorvastatin 80 mg tablet 80 mg PO HS 10/25/23 10/25/23 divalproex 500 mg tablet,extended 1,000 mg PO BID 10/25/23 02/21/24 release 24 hr (Depakote ER) meloxicam 15 mg tablet 15 mg PO DAILY 10/25/23 10/25/23 sertraline 100 mg tablet (Zoloft) 200 mg PO DAILY 10/25/23 10/25/23 thiamine HCl (vitamin B1) 100 mg 100 mg PO DAILY 10/25/23 10/25/23 tablet (Vitamin B-1) topiramate 200 mg tablet 200 mg PO BID 10/25/23 02/21/24 lacosamide 200 mg tablet (Vimpat) 200 mg PO BID 02/21/24 02/21/24 Previous Rx's ?Medication ?Instructions ?Recorded cephalexin 500 mg capsule 500 mg PO BID 7 days #14 caps 11/26/23 erythromycin 5 mg/gram (0.5 %) eye 1 applic ophthalmic (eye) BID #3.5 11/26/23 ointment grams Allergies Allergy/AdvReac Type Severity Reaction Status Date / Time No Known Allergies Allergy Verified 12/08/23 18:21 <Pacheco Goodman MD - Last Filed: 02/21/24 15:10> History of Present Illness HPI narrative: Please note that above description of symptoms, in this electronic medical record under categorization of recalled from ER triage doctor by RN are reflective of an initial nursing assessment, however, is not reflective of my full history and physical exam that was personally taken and clarified. Consequentially, this preceding description of symptoms, which may include the patient's categorized chief complaint in the EMR, do not reflect my personal clinical impression, and the ultimate description of history of present illness and patient stated complaints should be deferred to this section of the note. Unless stated otherwise or congruent with this section of the note, additional signs, symptoms, or incongruence should be interpreted as inaccurate with my clinical impression. [facility] <OLIVA Roman - Last Filed: 02/21/24 14:33> [facility] Disclaimer: The information contained in this section may have been updated after the patient was seen, as this information can be updated by other users. Medical History Seizures Surgical History H/O heart artery stent Social History Smoking Status: Current every day smoker alcohol intake: never current occupational status: unemployed Travel in the last 8 weeks: None <Pacheco Goodman MD - Last Filed: 02/21/24 15:10> ROS Obtained: Yes All systems reviewed & no additional complaints except as documented Physical Exam <Pacheco Goodman MD - Last Filed: 02/21/24 15:10> General General appearance: alert Head Head exam: atraumatic and normocephalic Eye Eye exam: Present normal appearance, PERRL and EOMI Neck Neck exam: Present normal inspection, full ROM and trachea midline Respiratory Respiratory exam: Absent respiratory distress, wheezes, stridor, accessory muscle use or prolonged expiratory phase Cardiovascular Cardiovascular exam: Present other (Pulses equal symmetric in upper and lower extremities) Abdominal Exam Abdominal exam: Present soft; Absent distention, tenderness or pulsatile mass Extremities Exam Extremities exam: Absent edema Neurological Exam Neurological exam: Present alert, oriented X3 and CN II-XII intact; Absent motor sensory deficit Skin Skin exam: Present warm and dry; Absent diaphoresis or erythema Medical Decision Making <OLIVA Roman - Last Filed: 02/21/24 14:33> Medical Records Screening: Per USPSTF and CDC recommendations, given the prevalence of disease in our region, it is our hospital?s policy to screen for HIV and viral Hepatitis for all patients aged 18 and over and those with ongoing risk factors. Vital Signs: 02/21/24 14:29 02/21/24 15:04 02/21/24 15:30 Temperature 97.8 F Temperature Source Oral Pulse Rate 84 66 Pulse Rate [Right Radial] 86 Respiratory Rate 20 Blood Pressure 127/64 112/55 L Blood Pressure [Right Arm] 130/62 Blood Pressure Mean Blood Pressure Mean [Right Arm] 84 02 Sat by Pulse Oximetry 95 96 95 Oxygen Delivery Method Room Air Room Air Room Air 02/21/24 16:00 02/21/24 16:30 02/21/24 17:00 Temperature Temperature Source Pulse Rate 65 64 63 Pulse Rate [Right Radial] Respiratory Rate Blood Pressure 111/48 L 102/49 L 111/53 L Blood Pressure [Right Arm] Blood Pressure Mean 60 72 Blood Pressure Mean [Right Arm] 02 Sat by Pulse Oximetry 95 95 96 Oxygen Delivery Method Room Air Room Air Room Air 02/21/24 17:21 02/21/24 17:23 Temperature 98.0 F 98.2 F Temperature Source Pulse Rate 63 78 Pulse Rate [Right Radial] Respiratory Rate 13 20 Blood Pressure 111/53 L 127/78 Blood Pressure [Right Arm] Blood Pressure Mean Blood Pressure Mean [Right Arm] 02 Sat by Pulse Oximetry Oxygen Delivery Method Room Air Orders (Tests/Meds): ORDERS Category Date Time Status CT head/brain wo con Stat Cat Scan 02/21/24 14:33 Completed <Pacheco Goodman MD - Last Filed: 02/21/24 15:10> Medical Records Medical records reviewed: Yes I reviewed the patient's medical records. Joseluis Inquiry Pt receiving controlled substance: No Joseluis was queried for this patient: No Vital Signs: 02/21/24 14:29 02/21/24 15:04 02/21/24 15:30 Temperature 97.8 F Temperature Source Oral Pulse Rate 84 66 Pulse Rate [Right Radial] 86 Respiratory Rate 20 Blood Pressure 127/64 112/55 L Blood Pressure [Right Arm] 130/62 Blood Pressure Mean Blood Pressure Mean [Right Arm] 84 02 Sat by Pulse Oximetry 95 96 95 Oxygen Delivery Method Room Air Room Air Room Air 02/21/24 16:00 02/21/24 16:30 02/21/24 17:00 Temperature Temperature Source Pulse Rate 65 64 63 Pulse Rate [Right Radial] Respiratory Rate Blood Pressure 111/48 L 102/49 L 111/53 L Blood Pressure [Right Arm] Blood Pressure Mean 60 72 Blood Pressure Mean [Right Arm] 02 Sat by Pulse Oximetry 95 95 96 Oxygen Delivery Method Room Air Room Air Room Air 02/21/24 17:21 02/21/24 17:23 Temperature 98.0 F 98.2 F Temperature Source Pulse Rate 63 78 Pulse Rate [Right Radial] Respiratory Rate 13 20 Blood Pressure 111/53 L 127/78 Blood Pressure [Right Arm] Blood Pressure Mean Blood Pressure Mean [Right Arm] 02 Sat by Pulse Oximetry Oxygen Delivery Method Room Air Orders (Tests/Meds): ORDERS Category Date Time Status CT head/brain wo con Stat Cat Scan 02/21/24 14:33 Completed Medical Decision Narrative: 59-year-old male history of seizure disorder on Vimpat 200 BID, topomax 200 BID, and Depakote 1000 BID presenting with EMS for med evaluation. Patient was sleeping on the sidewalk after smoking marijuana just prior to this. Ambulance was called, picked him up. He ambulated to the EMS stretcher, then they brought him in for further evaluation. Patient denies seizures today, any pain anywhere. Does not remember most of the ambulance ride here to the emergency department. He is alert and oriented once arrived. Patient appears well, but chronically ill-appearing no trauma to his head or neck. Pupils equal and reactive. Cardiopulmonary exam within normal limits. Differential includes intoxication, withdrawal, seizure, ICH, closed head trauma, among others. CT head ordered. Prior to this being performed, care handed off to oncoming physician. Resin Filterer disclaimer Much of this encounter note is an electronic intellectual property legal assistant spoken language to printed text. Electronic intellectual property legal assistant of the spoken language may permit errors. Although I have reviewed the note, some errors may still exist. <Noemi Lucero, DO - Last Filed: 02/21/24 23:27> Vital Signs: 02/21/24 14:29 02/21/24 15:04 02/21/24 15:30 Temperature 97.8 F Temperature Source Oral Pulse Rate 84 66 Pulse Rate [Right Radial] 86 Respiratory Rate 20 Blood Pressure 127/64 112/55 L Blood Pressure [Right Arm] 130/62 Blood Pressure Mean Blood Pressure Mean [Right Arm] 84 02 Sat by Pulse Oximetry 95 96 95 Oxygen Delivery Method Room Air Room Air Room Air 02/21/24 16:00 02/21/24 16:30 02/21/24 17:00 Temperature Temperature Source Pulse Rate 65 64 63 Pulse Rate [Right Radial] Respiratory Rate Blood Pressure 111/48 L 102/49 L 111/53 L Blood Pressure [Right Arm] Blood Pressure Mean 60 72 Blood Pressure Mean [Right Arm] 02 Sat by Pulse Oximetry 95 95 96 Oxygen Delivery Method Room Air Room Air Room Air 02/21/24 17:21 02/21/24 17:23 Temperature 98.0 F 98.2 F Temperature Source Pulse Rate 63 78 Pulse Rate [Right Radial] Respiratory Rate 13 20 Blood Pressure 111/53 L 127/78 Blood Pressure [Right Arm] Blood Pressure Mean Blood Pressure Mean [Right Arm] 02 Sat by Pulse Oximetry Oxygen Delivery Method Room Air Orders (Tests/Meds): ORDERS Category Date Time Status CT head/brain wo con Stat Cat Scan 02/21/24 14:33 Completed Medical Decision Narrative: 59-year-old male history of seizure disorder on Vimpat 200 BID, topomax 200 BID, and Depakote 1000 BID presenting with EMS for med evaluation. Patient was sleeping on the sidewalk after smoking marijuana just prior to this. Ambulance was called, picked him up. He ambulated to the EMS stretcher, then they brought him in for further evaluation. Patient denies seizures today, any pain anywhere. Does not remember most of the ambulance ride here to the emergency department. He is alert and oriented once arrived. Patient appears well, but chronically ill-appearing no trauma to his head or neck. Pupils equal and reactive. Cardiopulmonary exam within normal limits. Differential includes intoxication, withdrawal, seizure, ICH, closed head trauma, among others. CT head ordered. Prior to this being performed, care handed off to oncoming physician. Resin Filterer disclaimer Much of this encounter note is an electronic intellectual property legal assistant spoken language to printed text. Electronic intellectual property legal assistant of the spoken language may permit errors. Although I have reviewed the note, some errors may still exist. DO Nic: I assumed care of the patient at 1500. He returned to his normal baseline and admits that he is smoking marijuana earlier. He has metabolized it and is now ambulatory and able to tolerate oral intake without difficulty. CT scan is reassuring. Given this, feel that he is appropriate for discharge. He was given instructions for medication compliance, he was counseled on drug use, and he was discharged after all questions were answered. Critical Care <Pacheco Goodman MD - Last Filed: 02/21/24 15:10> Critical Care Time Critical Care Time: No
--- NOTE | 2024-02-21 14:33 | CT_ITS ---
FINAL REPORT TECHNIQUE: Axial CT images were performed through the head. Coronal reformatted images were submitted. This study was performed with techniques to keep radiation doses as low as reasonably achievable (ALARA). Individualized dose reduction techniques using automated exposure control or adjustment of mA and/or kV according to the patient's size were employed. CLINICAL HISTORY: found sleeping on sidewalk FINDINGS: The ventricles are normal in size. There is no evidence of hemorrhage. There is no mass or edema identified. There is no abnormal extra-axial fluid seen. There is mild mucoperiosteal thickening in the left maxillary sinus and ethmoid air cells. IMPRESSION: No acute intracranial process. Chronic sinusitis. Reviewed, Interpreted and Dictated by Saul Leyva MD Transcribed by Jossy Barnes Authenticated and [facility]
--- NOTE | 2024-02-21 17:03 | PC.NURSE ---
Called [facility] to let them know that the patient is ready for discharge.
== END 2024-02-21 17:24 | disposition home or self-care (01) ==
PROVIDERS: Emergency Provider Emergency Medicine; PCP Internal Medicine Adolescent Medicine
DX: G40.909 Epilepsy, unspecified, not intractable, without status epilepticus (principal)
CPT/HCPCS: 70450; 99284

== ENCOUNTER 2024-02-22 17:07 | Emergency (ER) | payer MEDICARE, MEDICAID, SELFPAY ==
[2024-02-22 17:07] VITALS: BP 147/77; PULSE 65; RESP 14; TEMP 36.9; O2SAT 98; BMI 24.2
--- NOTE | 2024-02-22 17:07 | ED_ITS ---
<Statement entered by Nito Lomeli MD - 02/22/24 23:00> I was consulted by the RAMIRO, and we discussed the complexity of the problems being addressed. I approved the treatment and management plan for this patient's care in the emergency department, thus performing a substantive portion of the medical decision making. Nito Lomeli MD, MAYE, FACEP Discharge Plan Disposition Patient Disposition: Home, Self-Care Condition: Good Chief Complaint: Fall Prescriptions Prescriptions: No Action sertraline [Zoloft] 100 mg Tablet 200 mg PO DAILY atorvastatin 80 mg Tablet 80 mg PO HS meloxicam 15 mg Tablet 15 mg PO DAILY divalproex [Depakote ER] 500 mg Tablet Extended Release 24 Hr 1,000 mg PO BID topiramate 200 mg Tablet 200 mg PO BID thiamine HCl (vitamin B1) [Vitamin B-1] 100 mg Tablet 100 mg PO DAILY albuterol 90 mcg/actuation Aerosol 2 mcg INHALATION NEEDED PRN (Reason: soa) cephalexin 500 mg capsule 500 mg PO BID 7 Days Qty: 14 0RF erythromycin 5 mg/gram (0.5 %) ointment 1 applic ophthalmic (eye) BID Qty: 3.5 0RF lacosamide [Vimpat] 200 mg Tablet 200 mg PO BID Referrals Follow up/Referrals: Provider,ReferralMD [Primary Care Provider] - See instructions Activity Restrictions/Add. Instructions Additional Instructions/Restrictions: Return to the ER for intractable headache intractable nausea intractable vomiting or decreased level of consciousness. Follow-up with your PCP for any persistent or worsening symptoms or return to the ER as needed. Clinical Impressions Clinical Impression: Fall, Polysubstance abuse Print Language Print Language: Setswana Discharge ED Provider: Nito Lomeli General Adult HPI General Chief complaint: Fall Stated complaint: fall 02/21 Time Seen by Provider: 02/22/24 17:10 History of Present Illness HPI narrative: Patient presents for evaluation of a fall. Patient himself does not know what occurred however he he lives in an independent living facility. He was found down in his kitchen. He was disoriented and did not know what it happened. He was noted to have blood on the right side of his head. Patient has a known history of synthetic marijuana abuse and in fact was in our ER most of the day yesterday after becoming intoxicated on the same. He ultimately was discharged after the intoxication wore off and he was back to his normal baseline. Today patient does not know what transpired does not know that he hit his head although he has obvious visible external evidence of such. He denies actually currently headache neck pain chest pain fever chills hemoptysis hematochezia melena nausea vomiting diarrhea. He does not report any numbness or tingling or loss of motor or sensory in any of his extremities. He denies bowel or bladder function loss. Related Data Home Medications ?Medication ?Instructions ?Recorded ?Confirmed albuterol 90 mcg/actuation aerosol 2 mcg inhalation NEEDED PRN soa 10/25/23 10/25/23 inhaler atorvastatin 80 mg tablet 80 mg PO HS 10/25/23 10/25/23 divalproex 500 mg tablet,extended 1,000 mg PO BID 10/25/23 02/21/24 release 24 hr (Depakote ER) meloxicam 15 mg tablet 15 mg PO DAILY 10/25/23 10/25/23 sertraline 100 mg tablet (Zoloft) 200 mg PO DAILY 10/25/23 10/25/23 thiamine HCl (vitamin B1) 100 mg 100 mg PO DAILY 10/25/23 10/25/23 tablet (Vitamin B-1) topiramate 200 mg tablet 200 mg PO BID 10/25/23 02/21/24 lacosamide 200 mg tablet (Vimpat) 200 mg PO BID 02/21/24 02/21/24 Previous Rx's ?Medication ?Instructions ?Recorded cephalexin 500 mg capsule 500 mg PO BID 7 days #14 caps 11/26/23 erythromycin 5 mg/gram (0.5 %) eye 1 applic ophthalmic (eye) BID #3.5 11/26/23 ointment grams Allergies Allergy/AdvReac Type Severity Reaction Status Date / Time No Known Allergies Allergy Verified 02/22/24 17:16 [facility] Disclaimer: The information contained in this section may have been updated after the patient was seen, as this information can be updated by other users. Medical History Seizures Surgical History H/O heart artery stent Social History Smoking Status: Current every day smoker alcohol intake: never current occupational status: unemployed Travel in the last 8 weeks: None ROS Obtained: Yes Systems reviewed as appropriate & no additional complaints except as documented Physical Exam General General appearance: alert and in no apparent distress Respiratory Respiratory exam: Present normal lung sounds bilaterally Cardiovascular Cardiovascular exam: Present regular rate Neurological Exam Neurological exam: Present alert and oriented X3 Skin Skin exam: Present dry Medical Decision Making Medical Records Medical records reviewed: Yes I reviewed the patient's medical records. Screening: Per USPSTF and CDC recommendations, given the prevalence of disease in our region, it is our hospital?s policy to screen for HIV and viral Hepatitis for all patients aged 18 and over and those with ongoing risk factors. Joseluis Inquiry Pt receiving controlled substance: No Vital Signs: 02/22/24 17:07 02/22/24 17:30 02/22/24 18:00 Temperature 98.4 F Temperature Source Oral Pulse Rate 68 63 Pulse Rate [Left] 65 Respiratory Rate 14 Blood Pressure 124/68 129/77 Blood Pressure [Right Arm] 147/77 H Blood Pressure Mean [Right Arm] 100 Blood Pressure Source [Right Arm] Automatic Cuff Blood Pressure Position [Right Arm] Sitting 02 Sat by Pulse Oximetry 98 95 96 Oxygen Delivery Method Room Air Lab Data Lab results reviewed: Yes I reviewed the patient's lab results. Lab Results 02/22/24 18:16: WBC 8.5, RBC 3.88 L, Hgb 13.5 L, Hct 40.1 L, MCV 103.4 H, MCH 34.7 H, MCHC 33.6, RDW 13.4, Plt Count 283, MPV 7.9, Neut % (Auto) 66.7, Lymph % (Auto) 24.3, Holmes % (Auto) 5.3, Eos % (Auto) 3.1, Baso % (Auto) 0.5, Neut # (Auto) 5.7, Lymph # (Auto) 2.1, Holmes # (Auto) 0.5, Eos # (Auto) 0.3, Baso # (Auto) 0.1, PT 10.4, INR 0.92, Sodium 142, Potassium 3.9, Chloride 107, Carbon Dioxide 27, Anion Gap 11.9, BUN 12, Creatinine 0.80, Estimated Creat Clear 107, Estimated GFR 100, Est GFR ( Amer) 121, Glucose 127 H, Calcium 9.4, Total Bilirubin 0.4, AST 22, ALT 15, Alkaline Phosphatase 83, Total Protein 8.0, Albumin 4.0, Globulin 4.0 H, Albumin/Globulin Ratio 1.0 L 02/22/24 18:16 02/22/24 18:16 Orders (Tests/Meds): ED MEDICATIONS Generic Name Dose Route Start Last Admin Trade Name Freq PRN Reason Stop Dose Admin Sodium Chloride 10 ml 02/22/24 19:20 02/22/24 19:28 Sodium Chloride 0.9% 10ml Syr (Rad Only) IV 03/23/24 19:19 10 ml NEEDED PRN Administration Maintain IV Site Discontinued Medications Generic Name Dose Route Start Last Admin Trade Name Freq PRN Reason Stop Dose Admin Iopamidol 160 ml 02/22/24 19:20 02/22/24 19:27 Iopamidol-370 (76%);100ml Bottle IV 02/22/24 19:21 160 ml ONCE ONE Administration Sodium Chloride 100 ml 02/22/24 19:20 02/22/24 19:27 0.9 % Sodium Chloride 50 Ml Vial IV 02/22/24 19:21 100 ml ONCE ONE Administration ORDERS Category Date Time Status CT angio abdomen pelvis Stat Cat Scan 02/22/24 17:[address] angio chest - dissection Stat Cat Scan 02/22/24 17:[address] angio head Stat Cat Scan 02/22/24 17:[address] angio neck Stat Cat Scan 02/22/24 17:[address] bony pelvis Stat Cat Scan 02/22/24 17:[address] cervical spine wo con Stat Cat Scan 02/22/24 17:[address] facial bones wo con Stat Cat Scan 02/22/24 17:[address] head/brain wo con Stat Cat Scan 02/22/24 17:[address] lumbar spine wo con Stat Cat Scan 02/22/24 17:[address] thoracic spine wo con Stat Cat Scan 02/22/24 17:37 Completed CBC w/Auto Diff [Complete Blood Count Auto Diff] Stat Lab 02/22/24 18:16 Completed CMP [Comprehensive Metabolic Panel] Stat Lab 02/22/24 18:16 Completed INR [Prothrombin Time INR] Stat Lab 02/22/24 18:16 Completed Medical Decision Narrative: In summary patient is a 59-year-old male who presents to the emergency department for evaluation of being found down. Patient is hemodynamically stable upon arrival, afebrile. Physical exam is remarkable for skin tears to his right mid scalp without bony deformity. No other focal physical findings found including pain bony deformity tenderness to palpation. Glascow coma score is 13 as patient thinks he was on his way to the bathroom and does not recall the events prior to his fall. Differential diagnosis includes intoxication versus intercranial hemorrhage versus occult fracture etc. Initial workup will be conducted with hematologic labs trauma CT scans. Initial interventions include acetaminophen for now until we rule out a bleed. Initial workup reviewed by me shows that his hematologic labs are nonactionable patient has no evidence of acute fracture intracranial bleed or bony deformity.. Upon repeat evaluation patient has Samantha Coma Score 15 is tolerating oral intake. Given this patient is appropriate for discharge with close follow-up with his PCP with strict return precautions. Critical Care Critical Care Time Critical Care Time: No
[2024-02-22 17:30] VITALS: BP 124/68; PULSE 68; O2SAT 95
--- NOTE | 2024-02-22 17:37 | CT_ITS ---
PROCEDURE INFORMATION: Exam: CT Thoracic Spine Without Contrast Exam date and time: 02/22/2024 7:15 PM Age: 59 years old Clinical indication: Injury or trauma; Fall; Blunt trauma (contusions or hematomas); Additional info: Trauma, critical injury suspected TECHNIQUE: Imaging protocol: Computed tomography of the thoracic spine without contrast. Radiation optimization: All CT scans at this facility use at least one of these dose optimization techniques: automated exposure control; mA and/or kV adjustment per patient size (includes targeted exams where dose is matched to clinical indication); or iterative reconstruction. COMPARISON: CT CERVICAL SPINE WO CON 22/02/2024 19:07 FINDINGS: Bones/joints: T8, T10, and T12 fractures are likely chronic. Soft tissues: Unremarkable. Other findings: Please see separate report for CT chest. IMPRESSION: No acute fracture or malalignment of the thoracic spine.
--- NOTE | 2024-02-22 17:37 | CT_ITS ---
PROCEDURE INFORMATION: Exam: CT Pelvis Without Contrast, Skeleton Exam date and time: 02/22/2024 7:20 PM Age: 59 years old Clinical indication: Injury or trauma; Fall; Blunt trauma (contusions or hematomas); Does not apply; Pelvic region; Additional info: Trauma, critical injury suspected TECHNIQUE: Imaging protocol: Computed tomography of the pelvis without contrast. Exam focused on the skeleton. Radiation optimization: All CT scans at this facility use at least one of these dose optimization techniques: automated exposure control; mA and/or kV adjustment per patient size (includes targeted exams where dose is matched to clinical indication); or iterative reconstruction. COMPARISON: CT ANGIO ABDOMEN PELVIS 25/10/2023 07:11 FINDINGS: Bones/joints: No acute fracture or dislocation. Soft tissues: Unremarkable. Other findings: Please see separate report for abdomen/pelvis. IMPRESSION: No acute fracture or dislocation.
--- NOTE | 2024-02-22 17:37 | CT_ITS ---
PROCEDURE INFORMATION: Exam: CTA Neck With Contrast Exam date and time: 02/22/2024 7:22 PM Age: 59 years old Clinical indication: Injury or trauma; Fall; Other: Pain; Additional info: Trauma, critical injury suspected TECHNIQUE: Imaging protocol: Computed tomographic angiography of the neck with contrast. Exam focused on the cervical segments of the vasculature. 3D rendering (Not supervised by radiologist): MIP and/or 3D reconstructed images were created by the technologist. Radiation optimization: All CT scans at this facility use at least one of these dose optimization techniques: automated exposure control; mA and/or kV adjustment per patient size (includes targeted exams where dose is matched to clinical indication); or iterative reconstruction. Contrast material: ISOVUE; Contrast volume: 80 ml; Contrast route: INTRAVENOUS (IV); COMPARISON: CT ANGIO NECK 10/25/2023 7:08 AM FINDINGS: Right common carotid artery: Mild-moderate mixed calcific plaque distally. No stenosis. No dissection or occlusion. Right internal carotid artery: Mild calcific plaque in the right carotid bulb and proximal ICA. Mild distal calcific plaque. Mild tortuosity. No stenosis. No dissection or occlusion. Right external carotid artery: Normal. No stenosis. No dissection or occlusion. Left common carotid artery: Mild proximal calcific plaque and mild mid to distal soft plaque. No stenosis. No dissection or occlusion. Left internal carotid artery: Mild calcific plaque in the left carotid bulb. Mild left ICA tortuosity. No stenosis. No dissection or occlusion. Left external carotid artery: Normal. No stenosis. No dissection or occlusion. Right vertebral artery: Mild ostial calcific plaque. Portions of the V1 segment are obscured by adjacent hyperdense contrast. No stenosis. No dissection or occlusion. Left vertebral artery: Mild V4 calcific plaque. No stenosis. No dissection or occlusion. Brachiocephalic artery: The brachiocephalic artery demonstrates mild calcific plaque without stenosis. Right subclavian artery: The right subclavian artery demonstrates mild calcific plaque without stenosis. Left subclavian artery: The left subclavian artery demonstrates mild calcific plaque without stenosis. Aorta: The visualized aortic arch demonstrates mild ectasia/tortuosity and calcific atherosclerosis without evidence of dissection or gross aneurysm. Thyroid: The thyroid gland is unremarkable. Soft tissues: No acute soft tissue abnormalities. Subcutaneous nodule in the left posterolateral upper neck measuring 13 x 9 mm consistent with an incidental sebaceous cyst or epidermal inclusion cyst. Bones/joints: No acute osseous abnormalities are identified. Moderate disc degenerative changes C5-C6 through C7-T1 with mild-moderate canal stenosis at these levels and moderate-severe bilateral foraminal stenoses. Lungs: Chronic nodular fibrosis in the posterolateral left pulmonary apex series 9, image 26 measuring 3.4 x 1.1 x 1.7 cm is unchanged from 10/25/2023. IMPRESSION: 1. No evidence of arterial occlusion, significant stenosis, dissection, or aneurysm/pseudoaneurysm. No acute findings. 2. Nonemergent findings detailed above. REFERENCES: NASCET CRITERIA. The degree of stenosis in the cervical segment of the internal carotid artery is based on NASCET criteria. Normal is no stenosis. Mild is less than 50% stenosis. Moderate is 50-69% stenosis. Severe is 70% to 99% stenosis. Total occlusion is no detectable patent lumen.
--- NOTE | 2024-02-22 17:37 | CT_ITS ---
PROCEDURE INFORMATION: Exam: CTA Head With Contrast, Arteriography Exam date and time: 02/22/2024 7:22 PM Age: 59 years old Clinical indication: Injury or trauma; Fall; Other: Pain; Additional info: Trauma, critical injury suspected TECHNIQUE: Imaging protocol: Computed tomographic angiography of the head with contrast. Exam focused on the arteries. 3D rendering (Not supervised by radiologist): MIP and/or 3D reconstructed images were created by the technologist. Radiation optimization: All CT scans at this facility use at least one of these dose optimization techniques: automated exposure control; mA and/or kV adjustment per patient size (includes targeted exams where dose is matched to clinical indication); or iterative reconstruction. Contrast material: ISOVUE; Contrast volume: 80 ml; Contrast route: INTRAVENOUS (IV); COMPARISON: CT ANGIO HEAD 10/25/2023 7:08 AM FINDINGS: ANTERIOR CIRCULATION: Right internal carotid artery: The right ICA petrous segment is unremarkable. Cavernous and supraclinoid segments demonstrate mild calcific plaque without stenosis. Right middle cerebral artery: Unremarkable. No occlusion or significant stenosis. No aneurysm. Right anterior cerebral artery: Unremarkable. No occlusion or significant stenosis. No aneurysm. The anterior communicating artery is unremarkable. Left internal carotid artery: The left ICA petrous segment is unremarkable. Cavernous and supraclinoid segments demonstrate minor calcific plaque without stenosis. Left middle cerebral artery: Unremarkable. No occlusion or significant stenosis. No aneurysm. Left anterior cerebral artery: Unremarkable. No occlusion or significant stenosis. No aneurysm. POSTERIOR CIRCULATION: Right vertebral artery: Unremarkable. No occlusion or significant stenosis. No aneurysm. Left vertebral artery: Mild V4 calcific plaque. No occlusion or significant stenosis. No aneurysm. Basilar artery: Unremarkable. No occlusion or significant stenosis. No aneurysm. Right posterior cerebral artery: Unremarkable. No occlusion or significant stenosis. No aneurysm. Left posterior cerebral artery: Normal variant persistent origin with hypoplastic left P1 segment. No occlusion or significant stenosis. No aneurysm. Veins: The dural venous sinuses and major cortical veins enhance appropriately without evidence of thrombosis. Brain: No enhancing brain lesions or vascular malformations are identified. Cerebral ventricles: No ventriculomegaly. Mastoid air cells: Mastoid air cells are clear. Paranasal sinuses: Mucosal thickening in the bilateral maxillary, ethmoid, and frontal sinuses consistent with chronic sinusitis. No fluid levels. Bones/joints: Unremarkable. No acute fracture. Soft tissues: Right parietal and right frontal scalp soft tissue swelling with no underlying fracture or foreign body. IMPRESSION: 1. No evidence of large vessel occlusion or significant stenosis. No evidence of arterial dissection or aneurysm/pseudoaneurysm. No acute intracranial process is evident. 2. Scalp swelling in the right frontal and parietal distributions with no underlying fracture or foreign body.
--- NOTE | 2024-02-22 17:37 | CT_ITS ---
PROCEDURE INFORMATION: Exam: CT Lumbar Spine Without Contrast Exam date and time: 02/22/2024 7:17 PM Age: 59 years old Clinical indication: Injury or trauma; Fall; Blunt trauma (contusions or hematomas); Additional info: Trauma, critical injury suspected TECHNIQUE: Imaging protocol: Computed tomography of the lumbar spine without contrast. Radiation optimization: All CT scans at this facility use at least one of these dose optimization techniques: automated exposure control; mA and/or kV adjustment per patient size (includes targeted exams where dose is matched to clinical indication); or iterative reconstruction. COMPARISON: CT THORACIC SPINE WO CON 22/02/2024 19:15 FINDINGS: Bones/joints: Multilevel degenerative changes of the lumbar spine producing multiple levels of mild spinal canal stenosis. Soft tissues: Unremarkable. Other findings: Please see separate report for abdomen/pelvis. IMPRESSION: No acute fracture or malalignment of the lumbar spine.
--- NOTE | 2024-02-22 17:37 | CT_ITS ---
PROCEDURE INFORMATION: Exam: CT Cervical Spine Without Contrast Exam date and time: 02/22/2024 7:07 PM Age: 59 years old Clinical indication: Injury or trauma; Fall; Other: Pain; Additional info: Trauma, critical injury suspected TECHNIQUE: Imaging protocol: Computed tomography of the cervical spine without contrast. Radiation optimization: All CT scans at this facility use at least one of these dose optimization techniques: automated exposure control; mA and/or kV adjustment per patient size (includes targeted exams where dose is matched to clinical indication); or iterative reconstruction. COMPARISON: CT CERVICAL SPINE WO CON 01/22/2024 12:51 PM FINDINGS: Bones: No evident fracture. Degenerative changes of the C-spine most pronounced at C5-C6 and C6-C7. Associated moderate degenerative related central canal narrowing at these levels. Otherwise unremarkable CT of the C-spine with no fracture evident. Alignment and vertebral body heights are intact. Lungs: Lung apices are normal. Soft tissues: Unremarkable. IMPRESSION: Degenerative changes. No acute abnormality.
--- NOTE | 2024-02-22 17:37 | CT_ITS ---
PROCEDURE INFORMATION: Exam: CTA Chest With Contrast Exam date and time: 02/22/2024 7:25 PM Age: 59 years old Clinical indication: Injury or trauma; Fall; Other: Pain; Additional info: Trauma, critical injury suspected TECHNIQUE: Imaging protocol: Computed tomographic angiography of the chest with contrast. Exam focused on the arteries. 3D rendering (Not supervised by radiologist): MIP and/or 3D reconstructed images were created by the technologist. Radiation optimization: All CT scans at this facility use at least one of these dose optimization techniques: automated exposure control; mA and/or kV adjustment per patient size (includes targeted exams where dose is matched to clinical indication); or iterative reconstruction. Contrast material: ISOVUE; Contrast volume: 80 ml; Contrast route: INTRAVENOUS (IV); COMPARISON: CT ANGIO CHEST 25/10/2023 07:11 FINDINGS: Pulmonary arteries: Normal. No pulmonary emboli. Aorta: The aorta demonstrates mild to moderate atherosclerotic disease. Lungs: Mild centrilobular emphysema. Mild posterior atelectasis. There is a 2.9 cm nodular opacity in the left lung apex unchanged compared to prior study. Mild scarring and atelectasis in the lower lungs. Pleural spaces: Unremarkable. No pneumothorax. No pleural effusion. Heart: Cardiomegaly. Mitral and aortic valve calcifications. Coronary arteries: Severe coronary arterial calcification, indicating the presence of coronary artery disease. Lymph nodes: Unremarkable. No enlarged lymph nodes. Bones/joints: Multiple old left rib fractures. Soft tissues: Unremarkable. Other findings: Please see separate report for abdomen/pelvis. IMPRESSION: 1. No acute intrathoracic organ injury. 2. There is a 2.9 cm nodular opacity in the left lung apex unchanged compared to prior study. Given that the patient is at increased risk for pulmonary malignancy, a three-month follow-up CT is recommended. 3. Severe coronary arterial calcification, indicating the presence of coronary artery disease. If the patient has associated symptoms, recommend management as per chest pain guidelines. If the patient is asymptomatic, consider reviewing modifiable cardiovascular risk factors and managing as per guidelines for primary prevention.
--- NOTE | 2024-02-22 17:37 | CT_ITS ---
PROCEDURE INFORMATION: Exam: CT Maxillofacial Without Contrast Exam date and time: 02/22/2024 7:10 PM Age: 59 years old Clinical indication: Injury or trauma; Fall; Other: Pain; Additional info: Trauma, critical injury suspected TECHNIQUE: Imaging protocol: Computed tomography of the face without contrast. Radiation optimization: All CT scans at this facility use at least one of these dose optimization techniques: automated exposure control; mA and/or kV adjustment per patient size (includes targeted exams where dose is matched to clinical indication); or iterative reconstruction. COMPARISON: CT FACIAL BONES WO CON 01/22/2024 12:48 PM FINDINGS: Paranasal sinuses: No air-fluid levels. Orbital cavities: Orbits are normal. Globes are unremarkable. Bones: Moderate mucosal thickening of some of the ethmoids and mild mucosal thickening of the left maxillary sinus and inferior frontal sinuses similar to previous. No fluid levels. No acute fracture. Plate and screw fixation of the anterior mandible redemonstrated. Soft tissues: Unremarkable. IMPRESSION: 1. No acute abnormality. 2. Incidental chronic appearing paranasal sinus disease.
--- NOTE | 2024-02-22 17:37 | CT_ITS ---
PROCEDURE INFORMATION: Exam: CT Head Without Contrast Exam date and time: 02/22/2024 7:05 PM Age: 59 years old Clinical indication: Injury or trauma; Fall; Other: Pain; Additional info: Trauma, critical injury suspected TECHNIQUE: Imaging protocol: Computed tomography of the head without contrast. Radiation optimization: All CT scans at this facility use at least one of these dose optimization techniques: automated exposure control; mA and/or kV adjustment per patient size (includes targeted exams where dose is matched to clinical indication); or iterative reconstruction. COMPARISON: CT HEAD/BRAIN WO CON 02/21/2024 3:00 PM FINDINGS: Brain: Normal. No hemorrhage. Unremarkable white matter. No mass effect. Cerebral ventricles: No ventriculomegaly. Paranasal sinuses: Visualized sinuses are unremarkable. No fluid levels. Mastoid air cells: Visualized mastoid air cells are well aerated. Bones: Incidental paranasal sinus disease with moderate mucosal thickening of several of the ethmoids redemonstrated. No fluid levels. Soft tissues: Scalp soft tissue swelling noted adjacent to the posterolateral right parietal bone region with no underlying skull fracture. IMPRESSION: 1. Scalp soft tissue swelling noted adjacent to the posterolateral right parietal bone with no underlying skull fracture. 2. Otherwise stable noncontrast CT brain. No acute intracranial abnormality.
--- NOTE | 2024-02-22 17:37 | CT_ITS ---
PROCEDURE INFORMATION: Exam: CTA Abdomen and Pelvis With Contrast Exam date and time: 02/22/2024 7:25 PM Age: 59 years old Clinical indication: Injury or trauma; Fall; Other: Pain; Additional info: Trauma, critical injury suspected TECHNIQUE: Imaging protocol: Computed tomographic angiography of the abdomen and pelvis with contrast. Exam focused on the arteries. 3D rendering (Not supervised by radiologist): MIP and/or 3D reconstructed images were created by the technologist. Radiation optimization: All CT scans at this facility use at least one of these dose optimization techniques: automated exposure control; mA and/or kV adjustment per patient size (includes targeted exams where dose is matched to clinical indication); or iterative reconstruction. Contrast material: ISOVUE; Contrast volume: 80 ml; Contrast route: INTRAVENOUS (IV); COMPARISON: CT ANGIO ABDOMEN PELVIS 25/10/2023 07:11 FINDINGS: Aorta: No aortic aneurysm. No aortic dissection. Celiac trunk and mesenteric arteries: No occlusion or significant stenosis. Renal arteries: No occlusion or significant stenosis. Right iliac arteries: No occlusion or significant stenosis. Left iliac arteries: No occlusion or significant stenosis. Other arteries: The arteries demonstrate severe atherosclerotic disease. Liver: No mass. Gallbladder and biliary ducts: Unremarkable. No calcified stones. No ductal dilation. Pancreas: Unremarkable. No mass. No ductal dilation. Spleen: Unremarkable. No splenomegaly. Adrenal glands: Unchanged 2.2 cm right adrenal nodule. Kidneys and ureters: The left mild bilateral renal scarring. Low attenuation renal lesions measuring up to 12 mm in diameter are incompletely characterized, but are likely cysts. No followup imaging is warranted. Stomach and bowel: Nonspecific gastric wall thickening. Appendix: Unremarkable appendix. Intraperitoneal space: Unremarkable. No free air. No significant fluid collection. Lymph nodes: Unremarkable. No enlarged lymph nodes. Urinary bladder: Mild urinary bladder wall thickening likely related to low urine volume. Reproductive: [id number] prostate enlargement. Bones/joints: No acute fracture. Soft tissues: Tiny fat containing umbilical hernia. Other findings: Please see separate report for CT chest. IMPRESSION: 1. No acute intra-abdominal or intrapelvic organ injury. 2. Nonspecific gastric wall thickening. Please exclude gastritis. 3. Unchanged 2.2 cm right adrenal nodule. Non-emergent adrenal CT is recommended. (Reference: Rima) REFERENCES: Rima SON, et al. Management of Incidental Adrenal Masses: A White Paper of the ACR Incidental Findings Committee. J Am Gino Radiol. 2017;14(8):0512-5759.
[2024-02-22 18:00] VITALS: BP 129/77; PULSE 63; O2SAT 96
--- NOTE | 2024-02-22 18:04 | ECG_ITS ---
APPROVED REPORT Exam: Resting ECG HR:59 bpm ECG Measurements Heart Rate 59 AXES OR 143 P 76 QRSd 95 QRS 89 QT 381 T 68 QTc 380 Conclusion SINUS BRADYCARDIA WITH SINUS ARRHYTHMIA BORDERLINE ECG UNCONFIRMED REPORT Electronically signed by : Jac Lomeli, 02/22/2024 23:03:07
[2024-02-22 18:24] LABS: Basophils # 0.1 K/mm3 (0-0.2); Basophils % 0.5 % (0.1-2.0); Eosinophils # 0.3 K/mm3 (0.0-0.4); Eosinophils % 3.1 % (0.1-12.0); Hematocrit 40.1 % (42.0-52.0); Hemoglobin 13.5 g/dL (14.1-18.0); Lymphocytes # 2.1 K/mm3 (0.7-4.5); Lymphocytes % 24.3 % (10-50); Mean Corpuscular HGB Conc 33.6 g/dL (31.8-35.4); Mean Corpuscular Hemoglobin 34.7 pg (27.0-31.2); Mean Corpuscular Volume 103.4 fl (80-94); Mean Platelet Volume 7.9 fl (7.4-10.4); Monocytes # 0.5 K/mm3 (0.1-1.0); Monocytes % 5.3 % (1.7-9.3); Neutrophils # 5.7 K/mm3 (1.8-7.8); Neutrophils % 66.7 % (37.0-80.0); Platelet Count 283 K/mm3 (142-424); Red Blood Count 3.88 M/mm3 (4.60-6.20); Red Cell Distribution Width 13.4 % (11.5-17.5); White Blood Count 8.5 K/mm3 (4.8-10.8)
[2024-02-22 18:36] LABS: Chloride 107 mmol/L (98-107); Potassium 3.9 mmoL/L (3.5-5.1); Sodium 142 mmol/L (136-145)
[2024-02-22 18:39] LABS: Alanine Aminotransferase 15 U/L (12-78); Alkaline Phosphatase 83 U/L (38-126); Anion Gap 11.9 mEq/L (5-15); Aspartate Amino Transferase 22 U/L (17-59); Bilirubin,Total 0.4 mg/dl (0.2-1.3); Blood Urea Nitrogen 12 mg/dl (9-20); Calcium 9.4 mg/dl (8.4-10.2); Carbon Dioxide 27 mmol/L (22.0-30.0); Creatinine Clearance Estimated 107 mL/min (50-200); Estimated Glomerular Filt Rate 100 ml/min (>60); GFR (African American) 121 ML/MIN (>60); Glucose 127 mg/dl (74-100); INR 0.92 (0.9-1.1); Prothrombin Time 10.4 seconds (10.1-12.5)
--- NOTE | 2024-02-22 18:56 | PC.NURSE ---
PT to CT via stretcher
[2024-02-22] MEDS: 0.9 % SODIUM CHLORIDE 50 ML VIAL 100 ML IV (19:27)
[2024-02-22] MEDS: IOPAMIDOL-370 (76%);100ML BOTTLE 160 ML IV (19:27)
[2024-02-22] MEDS: SODIUM CHLORIDE 0.9% 10ML SYR (RAD ONLY) 10 ML IV (19:28)
[2024-02-22 21:13] VITALS: BP 129/77; PULSE 63; RESP 14; TEMP 36.7; O2SAT 96
--- NOTE | 2024-02-22 21:58 | PC.NURSE ---
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
== END 2024-02-22 22:04 | disposition home or self-care (01) ==
PROVIDERS: Physician Assistant; Emergency Provider Student in an Organized Health Care Education/Training Program
DX: F19.10 Other psychoactive substance abuse, uncomplicated (principal); S00.00XA Unspecified superficial injury of scalp, initial encounter; R41.0 Disorientation, unspecified; S09.90XA Unspecified injury of head, initial encounter; W18.30XA Fall on same level, unspecified, initial encounter; Y93.9 Activity, unspecified; Y92.000 Kitchen of unspecified non-institutional (private) residence as the place of occurrence of the external cause
CPT/HCPCS: 70450; 70486; 70496; 70498; 71275; 72125; 72128; 72131; 72192; 74174; 80053; 85025; 85610; 93005; 99285; Q9967

== ENCOUNTER 2024-03-12 02:34 | Emergency (ER) | payer MEDICARE, MEDICAID, SELFPAY ==
[2024-03-12] VITALS (13 sets, daily range): BP systolic 106–162; BP diastolic 58–133; PULSE 44–59; RESP 10–18; TEMP 36.6; O2SAT 98–99; BMI 23.6
--- NOTE | 2024-03-12 02:35 | ECG_ITS ---
APPROVED REPORT Exam: Resting ECG HR:46 bpm ECG Measurements Heart Rate 46 AXES PA 155 P 93 QRSd 106 QRS 90 QT 442 T 76 QTc 403 Conclusion SINUS BRADYCARDIA No STEMI, no findings of AV block Electronically signed by : DARION REYES, 03/12/2024 06:45:34
--- NOTE | 2024-03-12 02:37 | XR_ITS ---
PROCEDURE INFORMATION: Exam: XR Chest Exam date and time: 03/12/2024 2:39 AM Age: 59 years old Clinical indication: Other: AMS; Additional info: Altered mental status TECHNIQUE: Imaging protocol: Radiologic exam of the chest. Views: 1 view. COMPARISON: No relevant prior studies available. FINDINGS: Lungs: Prominent lung markings/peribronchial thickening with predominantly upper lobe emphysema, platelike atelectasis in the lung bases with volume loss. Pleural spaces: No evidence of pleural effusion or pneumothorax. Heart/Mediastinum: Cardiomediastinal silhouette is normal. Bones/joints: Chronic degenerative changes in the visualized spine. IMPRESSION: Chronic changes without evidence of an active lung parenchymal lesion.
--- NOTE | 2024-03-12 02:38 | CT_ITS ---
PROCEDURE INFORMATION: Exam: CT Head Without Contrast Exam date and time: 03/12/2024 2:51 AM Age: 59 years old Clinical indication: Stroke-like symptoms; Altered mental status/memory loss TECHNIQUE: Imaging protocol: Computed tomography of the head without contrast. Radiation optimization: All CT scans at this facility use at least one of these dose optimization techniques: automated exposure control; mA and/or kV adjustment per patient size (includes targeted exams where dose is matched to clinical indication); or iterative reconstruction. Other technique: STROKE PROTOCOL was implemented. COMPARISON: CT ANGIO HEAD 02/22/2024 7:22 PM FINDINGS: Brain: Normal appearing brain parenchyma without intraparenchymal hemorrhage and normal escalera-white matter differentiation/no obvious acute ischemic stroke. No intra-or extra-axial fluid collection, no supra-or infratentorial mass, no mass effect or midline shift. Cerebral ventricles: Ventricles, sulci and basal cisterns are normal in size without hydrocephalus. Paranasal sinuses: [id number] chronic mucoperiosteal thickening in the visualized paranasal sinuses. Mastoid air cells: No mastoid effusion. Bones: Visualized skull bones are grossly normal. Soft tissues: NA IMPRESSION: No evidence of an acute intracranial hemorrhage, mass lesion or obvious acute ischemic infarction. ASSESSMENT: ASPECTS ([place] Stroke Program Early CT Score) is 10. COMMENTS: Possibility of early and/or small acute/subacute ischemic infarct cannot be excluded on a CT scan. Recommend followup with MRI if persistent/worsening focal neurological deficits.
[2024-03-12 02:47] LABS: VBG Base Excess -3.1 mmol/L (-2.4-2.3); VBG HCO3 23.7 mmol/L (23-30); VBG PCO2 51.9 mmol/L (35-51); VBG PH 7.28 mmol/L (7.31-7.41); VBG PO2 26.3 mmol/L (28-40); VBG Total CO2 25.3 mmol/L (23-27)
[2024-03-12 02:47] LABS: Basophils # 0.1 K/mm3 (0-0.2); Basophils % 0.8 % (0.1-2.0); Eosinophils # 0.2 K/mm3 (0.0-0.4); Eosinophils % 2.1 % (0.1-12.0); Hematocrit 39.7 % (42.0-52.0); Hemoglobin 13.4 g/dL (14.1-18.0); Lymphocytes # 3.4 K/mm3 (0.7-4.5); Lymphocytes % 39.9 % (10-50); Mean Corpuscular HGB Conc 33.7 g/dL (31.8-35.4); Mean Corpuscular Hemoglobin 34.5 pg (27.0-31.2); Mean Corpuscular Volume 102.5 fl (80-94); Mean Platelet Volume 9.4 fl (7.4-10.4); Monocytes # 0.7 K/mm3 (0.1-1.0); Monocytes % 7.8 % (1.7-9.3); Neutrophils # 4.2 K/mm3 (1.8-7.8); Neutrophils % 49.4 % (37.0-80.0); Platelet Count 163 K/mm3 (142-424); Red Blood Count 3.87 M/mm3 (4.60-6.20); White Blood Count 8.5 K/mm3 (4.8-10.8)
[2024-03-12 02:48] LABS: Lactate Venous 2.1 mmol/L (0.4-2.0)
[2024-03-12 02:58] LABS: INR 0.95 (0.9-1.1); Magnesium 2.2 mg/dl (1.6-2.3); Prothrombin Time 10.7 seconds (10.1-12.5)
[2024-03-12 02:59] LABS: Alanine Aminotransferase 19 U/L (12-78); Albumin Level 4.1 g/dl (3.5-5.0); Albumin/Globulin Ratio 1.1 (1.1-1.8); Alkaline Phosphatase 58 U/L (38-126); Anion Gap 9.7 mEq/L (5-15); Aspartate Amino Transferase 31 U/L (17-59); Bilirubin,Total 0.4 mg/dl (0.2-1.3); Blood Urea Nitrogen 32 mg/dl (9-20); Calcium 9.4 mg/dl (8.4-10.2); Carbon Dioxide 28 mmol/L (22.0-30.0); Chloride 109 mmol/L (98-107); Creatinine Clearance Estimated 84 mL/min (50-200); Estimated Glomerular Filt Rate 77 ml/min (>60); GFR (African American) 93 ML/MIN (>60); Globulin 3.8 g/dL (1.3-3.2); Glucose 118 mg/dl (74-100); Potassium 4.7 mmoL/L (3.5-5.1); Sodium 142 mmol/L (136-145); Total Protein,Serum 7.9 g/dl (6.3-8.2)
[2024-03-12 03:05] LABS: Acetaminophen < 10 ug/ml (10-30); Ethyl Alcohol < 10 mg/dl (0-10); Salicylate < 1.0 mg/dL (2.0-20.0)
--- NOTE | 2024-03-12 03:13 | HMH.EDGENADL ---
Discharge Plan Disposition Patient Disposition: Home, Self-Care Condition: Good Chief Complaint: Altered Mental Status Prescriptions Prescriptions: No Action sertraline [Zoloft] 100 mg Tablet 200 mg PO DAILY atorvastatin 80 mg Tablet 80 mg PO HS meloxicam 15 mg Tablet 15 mg PO DAILY divalproex [Depakote ER] 500 mg Tablet Extended Release 24 Hr 1,000 mg PO BID topiramate 200 mg Tablet 200 mg PO BID thiamine HCl (vitamin B1) [Vitamin B-1] 100 mg Tablet 100 mg PO DAILY albuterol 90 mcg/actuation Aerosol 2 mcg INHALATION NEEDED PRN (Reason: soa) cephalexin 500 mg capsule 500 mg PO BID 7 Days Qty: 14 0RF erythromycin 5 mg/gram (0.5 %) ointment 1 applic ophthalmic (eye) BID Qty: 3.5 0RF lacosamide [Vimpat] 200 mg Tablet 200 mg PO BID Referrals Follow up/Referrals: Provider,Referral, [Primary Care Provider] - See instructions Marc León MD [Staff Physician] - See instructions (notable bradycardia in ER, asymptomatic, new/worse than prior, no block appreciated) Activity Restrictions/Add. Instructions Additional Instructions/Restrictions: You were evaluated in the ER and are appropriate for discharge at this time. Take home medications as previously prescribed. Please avoid all illicit substances including marijuana and alcohol. Drink plenty of water. Follow-up with your primary care doctor. You have been referred to cardiology because your heart rate is slow. Call them for an appointment as soon as possible. Return to the ER with new, worsening, or otherwise concerning symptoms Clinical Impressions Clinical Impression: Altered mental status, Bradycardia, Mild tetrahydrocannabinol (THC) abuse Instructions Patient Instructions: DI for Altered Mental Status Print Language Print Language: Yakut Discharge ED Provider: Celestine Ortiz General Adult HPI General Chief complaint: Altered Mental Status Stated complaint: change in mental status Time Seen by Provider: 03/12/24 02:36 Mode of Arrival: EMS Source of Information: Patient Limitations: Altered Mental Status Description of Symptoms (Recalled from ER Triage Doc. by RN): patient was sitting in [place] since 11 am on 03/11/24 so staff at [facility] sent patient to ER. State he is disoriented. History of Present Illness HPI narrative: 59-year-old male presents to the ER from [place] for concerns of disorientation. Patient has a known history of polysubstance use including marijuana, tobacco, alcohol. [facility] staff reports patient seemed confused around 11 PM, and was still disoriented early this morning so they called EMS to bring the patient for evaluation. EMS reports patient was bradycardic in the mid 40s. They report his blood glucose was normal. Patient is typically oriented to self and location. On my exam, he is currently oriented to self and location, he states he has no pain, he states he did use a lot of marijuana yesterday during the day, he denies alcohol use yesterday, he states he did smoke cigarettes. He reports no pain anywhere, no headache or dizziness, no numbness, tingling, or weakness, no chest pain or difficulty breathing, no cough or congestion, no nausea, vomiting, or abdominal pain, no diarrhea or constipation. He denies hematuria or dysuria. He is moving arms and legs equally. He states he does not feel bad at this time Related Data Home Medications ?Medication ?Instructions ?Recorded ?Confirmed albuterol 90 mcg/actuation aerosol 2 mcg inhalation NEEDED PRN soa 10/25/23 10/25/23 inhaler atorvastatin 80 mg tablet 80 mg PO HS 10/25/23 10/25/23 divalproex 500 mg tablet,extended 1,000 mg PO BID 10/25/23 02/21/24 release 24 hr (Depakote ER) meloxicam 15 mg tablet 15 mg PO DAILY 10/25/23 10/25/23 sertraline 100 mg tablet (Zoloft) 200 mg PO DAILY 10/25/23 10/25/23 thiamine HCl (vitamin B1) 100 mg 100 mg PO DAILY 10/25/23 10/25/23 tablet (Vitamin B-1) topiramate 200 mg tablet 200 mg PO BID 10/25/23 02/21/24 lacosamide 200 mg tablet (Vimpat) 200 mg PO BID 02/21/24 02/21/24 Previous Rx's ?Medication ?Instructions ?Recorded cephalexin 500 mg capsule 500 mg PO BID 7 days #14 caps 11/26/23 erythromycin 5 mg/gram (0.5 %) eye 1 applic ophthalmic (eye) BID #3.5 11/26/23 ointment grams Allergies Allergy/AdvReac Type Severity Reaction Status Date / Time No Known Allergies Allergy Verified 02/22/24 17:16 [facility] Disclaimer: The information contained in this section may have been updated after the patient was seen, as this information can be updated by other users. Medical History Seizures Surgical History H/O heart artery stent Social History Smoking Status: Former smoker alcohol intake: never current occupational status: unemployed Travel in the last 8 weeks: None ROS Obtained: Yes Systems reviewed as appropriate & no additional complaints except as documented ROS per HPI Physical Exam General General appearance: alert, in no apparent distress and appears intoxicated Comment: Poorly kept but not ill-appearing Head Head exam: atraumatic and normocephalic Eye Eye exam: Present PERRL and EOMI ENT ENT exam: Present mucous membranes moist Neck Neck exam: Present normal inspection and full ROM Chest Chest inspection: Present symmetric chest wall rise; Absent tenderness Respiratory Respiratory exam: Present normal lung sounds bilaterally; Absent respiratory distress, wheezes or stridor Cardiovascular Cardiovascular exam: Present normal rhythm and bradycardia Abdominal Exam Abdominal exam: Present soft; Absent distention or tenderness Extremities Exam Extremities exam: Present full ROM; Absent edema Neurological Exam Neurological exam: Present alert; Absent oriented X3 (Oriented to self and location, disoriented to year) or motor sensory deficit (Full strength and sensation in all extremities) Psychiatric Psychiatric exam: Present normal affect and normal mood Skin Skin exam: Present warm and dry Medical Decision Making Medical Records Medical records reviewed: Yes I reviewed the patient's medical records. Screening: Per USPSTF and CDC recommendations, given the prevalence of disease in our region, it is our hospital?s policy to screen for HIV and viral Hepatitis for all patients aged 18 and over and those with ongoing risk factors. MR Comment: Patient is well-known to this ER and has frequently presented with polysubstance use and intoxication as well as breakthrough seizure. Heart rate during visit in January during a visit to the ER ran in the upper 40s to low 50s. Joseluis Inquiry Pt receiving controlled substance: No Vital Signs: 03/12/24 02:35 03/12/24 02:38 03/12/24 03:01 Temperature 97.9 F Temperature Source Oral Pulse Rate 47 L Pulse Rate [Orthostatic Lying Right Radial] Pulse Rate [Orthostatic Sitting] Pulse Rate [Orthostatic Standing] Pulse Rate [Right Radial] 49 L Respiratory Rate 18 15 10 L Blood Pressure 106/58 L Blood Pressure [Orthostatic Lying Right Arm] Blood Pressure [Orthostatic Sitting Right Arm] Blood Pressure [Orthostatic Standing Right Arm] Blood Pressure [Right Arm] 127/77 Blood Pressure Mean [Right Arm] 93 Blood Pressure Source [Right Arm] Automatic Cuff Blood Pressure Position [Right Arm] Supine 02 Sat by Pulse Oximetry 98 98 Oxygen Delivery Method Room Air 03/12/24 03:31 03/12/24 03:45 03/12/24 04:00 Temperature Temperature Source Pulse Rate 45 L 47 L 44 L Pulse Rate [Orthostatic Lying Right Radial] Pulse Rate [Orthostatic Sitting] Pulse Rate [Orthostatic Standing] Pulse Rate [Right Radial] Respiratory Rate 11 L 14 14 Blood Pressure 124/62 131/62 Blood Pressure [Orthostatic Lying Right Arm] Blood Pressure [Orthostatic Sitting Right Arm] Blood Pressure [Orthostatic Standing Right Arm] Blood Pressure [Right Arm] Blood Pressure Mean [Right Arm] Blood Pressure Source [Right Arm] Blood Pressure Position [Right Arm] 02 Sat by Pulse Oximetry 98 98 98 Oxygen Delivery Method 03/12/24 04:31 03/12/24 05:00 03/12/24 05:30 Temperature Temperature Source Pulse Rate 52 L 49 L Pulse Rate [Orthostatic Lying Right Radial] Pulse Rate [Orthostatic Sitting] Pulse Rate [Orthostatic Standing] Pulse Rate [Right Radial] Respiratory Rate 13 11 L 10 L Blood Pressure 143/60 H 133/68 142/63 H Blood Pressure [Orthostatic Lying Right Arm] Blood Pressure [Orthostatic Sitting Right Arm] Blood Pressure [Orthostatic Standing Right Arm] Blood Pressure [Right Arm] Blood Pressure Mean [Right Arm] Blood Pressure Source [Right Arm] Blood Pressure Position [Right Arm] 02 Sat by Pulse Oximetry 99 99 Oxygen Delivery Method 03/12/24 05:32 03/12/24 05:34 03/12/24 05:47 Temperature Temperature Source Pulse Rate 58 L 59 L Pulse Rate [Orthostatic Lying Right Radial] 48 L Pulse Rate [Orthostatic Sitting] 57 L Pulse Rate [Orthostatic Standing] 59 L Pulse Rate [Right Radial] Respiratory Rate 11 L 11 L Blood Pressure 162/133 H 142/91 H Blood Pressure [Orthostatic Lying Right Arm] 142/63 H Blood Pressure [Orthostatic Sitting Right Arm] 162/133 H Blood Pressure [Orthostatic Standing Right Arm] 142/91 H Blood Pressure [Right Arm] Blood Pressure Mean [Right Arm] Blood Pressure Source [Right Arm] Blood Pressure Position [Right Arm] 02 Sat by Pulse Oximetry 98 98 Oxygen Delivery Method Lab Data Lab Results 03/12/24 02:09: WBC 8.5, RBC 3.87 L, Hgb 13.4 L, Hct 39.7 L, MCV 102.5 H, MCH 34.5 H, MCHC 33.7, RDW 14.0, Plt Count 163, MPV 9.4, Neut % (Auto) 49.4, Lymph % (Auto) 39.9, [place] % (Auto) 7.8, Eos % (Auto) 2.1, Baso % (Auto) 0.8, Neut # (Auto) 4.2, Lymph # (Auto) 3.4, [place] # (Auto) 0.7, Eos # (Auto) 0.2, Baso # (Auto) 0.1, PT 10.7, INR 0.95, Sodium 142, Potassium 4.7, Chloride 109 H, Carbon Dioxide 28, Anion Gap 9.7, BUN 32 H, Creatinine 1.00, Estimated Creat Clear 84, Estimated GFR 77, Est GFR ( Amer) 93, Glucose 118 H, Calcium 9.4, Magnesium 2.2, Total Bilirubin 0.4, AST 31, ALT 19, Alkaline Phosphatase 58, Total Protein 7.9, Albumin 4.1, Globulin 3.8 H, Albumin/Globulin Ratio 1.1, TSH 4.62, Free T4 0.85, Salicylates < 1.0 L, Acetaminophen < 10 L, Plasma/Serum Alcohol < 10 03/12/24 02:44: VBG pH 7.28 L, VBG pCO2 51.9 H, VBG pO2 26.3 L, VBG HCO3 23.7, VBG Total CO2 25.3, VBG O2 Saturation 40.0 L, VBG Base Excess -3.1 L, VBG Lactic Acid 2.1 H 03/12/24 05:46: Urine Color Yellow, Urine Appearance Clear, Urine pH 6.0, Ur Specific Russell >= 1.030, Urine Protein Negative, Urine Glucose (UA) Negative, Urine Ketones Negative, Urine Blood Negative, Urine Nitrate Negative, Urine Bilirubin Negative, Urine Urobilinogen 0.2, Ur Leukocyte Esterase Negative 03/12/24 02:09 03/12/24 02:09 Orders (Tests/Meds): ED MEDICATIONS Generic Name Dose Route Start Last Admin Trade Name Freq PRN Reason Stop Dose Admin Sodium Chloride 1,000 mls @ 999 mls/hr 03/12/24 04:59 03/12/24 05:02 Sod Chlor 0.9% 1000ml Bag IV 03/12/24 05:59 999 mls/hr .Q1H1M ONE Administration Discontinued Medications Generic Name Dose Route Start Last Admin Trade Name Freq PRN Reason Stop Dose Admin Lactated Ringer's 1,000 mls @ 999 mls/hr 03/12/24 03:27 03/12/24 03:29 Lactated Ringer's 1000 Ml Bag IV 03/12/24 04:27 Not Given .Q1H1M ONE Sodium Chloride 1,000 mls @ 999 mls/hr 03/12/24 03:28 03/12/24 03:31 Sod Chlor 0.9% 1000ml Bag IV 03/12/24 04:28 999 mls/hr .Q1H1M ONE Administration ORDERS Category Date Time Status CT head/brain wo con Stat Cat Scan 03/12/24 02:38 Completed XR chest portable Stat Exams 03/12/24 02:37 Completed Acetaminophen Stat Lab 03/12/24 02:09 Completed Complete Blood Count Auto Diff Stat Lab 03/12/24 02:09 Completed Comprehensive Metabolic Panel Stat Lab 03/12/24 02:09 Completed Drug Screen,Urine Stat Lab 03/12/24 05:44 Received Ethyl Alcohol Stat Lab 03/12/24 02:09 Completed Free T4 (Free Thyroxine) Stat Lab 03/12/24 02:09 Completed Magnesium Stat Lab 03/12/24 02:09 Completed Prothrombin Time INR Stat Lab 03/12/24 02:09 Completed Salicylate Stat Lab 03/12/24 02:09 Completed Thyroid Stimulating Hormone Stat Lab 03/12/24 02:09 Completed Urinalysis and Microscopic Stat Lab 03/12/24 05:46 Results Venous Blood Gas Stat RT 03/12/24 02:44 Completed Medical Decision Narrative: In summary, this 59-year-old male with comorbidities as described in HPI presents to the emergency department today with concerns of disorientation from [place]. On initial evaluation patient is bradycardic but normotensive, oriented to his baseline, admits to significant marijuana use, physical exam does not demonstrate any traumatic findings or acute abnormalities aside from bradycardia. Differential diagnosis includes but is not limited to intoxication, polysubstance use, intracranial bleed or lesion, thyroid abnormality, I considered stroke patient has no lateralizing deficits and I have low suspicion for this, I considered cardiac abnormality, electrolyte abnormality, dehydration, hypercarbia, hypoxia. Based on these concerns, I ordered broad workup for altered mental status. ECG personally interpreted demonstrates sinus bradycardia, rate 46, normal axis, normal [place] and QTc, no STEMI, patient does not have heart block. Labs personally reviewed demonstrate mild lactic acidosis with pH 7.28 and slight hypercarbia, he is receiving IV fluids, CMP nonactionable, free T4 normal, acetaminophen, salicylates, EtOH negative, TSH normal, UA negative for findings of infection. Chest x-ray personally interpreted does not demonstrate acute intrathoracic abnormality, see radiology read for final interpretation. CT head personally interpreted does not demonstrate acute intracranial abnormality, see radiology read for final interpretation. Patient was sleeping and continued to be bradycardic, his heart rate is similar to that which she is exhibited in the ER before, however since he has not yet urinated and when he wakes up is briefly confused, I placed him into ED observation for continued monitoring and frequent reassessment. He was placed into ED observation at 0438. I continually reevaluated the patient, his mental status remained stable. Orthostatics performed on the patient were reassuring, he does not have evidence of orthostatic hypotension, does not have significant changes in his heart rate. He is warm and well-perfused. UA negative for findings of infection, UDS positive for THC consistent with the history he provided. At this time patient is appropriate for discharge. He is alert, ambulatory, at his baseline. Patient was given instructions on symptomatic management, avoiding substance use, follow up instructions including referral to cardiology for bradycardia, and return precautions for the emergency department. Patient indicated understanding and was discharged in stable condition. Critical Care Critical Care Time Critical Care Time: No
[2024-03-12 03:15] LABS: Free T4 (Free Thyroxine) 0.85 ng/dl (0.78-2.19)
[2024-03-12 03:29] LABS: Thyroid Stimulating Hormone 4.62 uIU/mL (0.465-4.68)
[2024-03-12] MEDS: 0.9 % SODIUM CHLORIDE 1000ML 1,000 ML 999 ML IV ×2 (03:31→05:02)
[2024-03-12 05:49] LABS: Microscopic, Urine URINE MICROSCOPIC (MICROSCOPIC)
[2024-03-12 05:51] LABS: Appearance,Urine CLEAR (Clear); Bilirubin,Urine Negative (Negative); Blood, Urine Negative (Negative); Color,Urine YELLOW (Yellow); Glucose,Urine (UA) Negative (Negative); Ketones,Urine Negative (Negative); Leukocyte Esterase,Urine Negative (Negative); Nitrate,Urine Negative (Negative); Protein,Urine Negative (Negative); Specific Gravity, Urine >= 1.030 (1.005-1.030); Urobilinogen,Urine 0.2 EU/dl (0.2)
[2024-03-12 05:59] LABS: Bacteria,Urine Trace /lpf; Hyaline Casts,Urine Occasional #/lpf (0); RBC,Urine Occasional #/hpf (0-3); WBC,Urine Occasional #/hpf (0-3)
[2024-03-12 06:03] LABS: Barbiturates Screen,Urine Negative ng/ml (<200)
[2024-03-12 06:04] LABS: Benzodiazepines Screen,Urine Negative ng/ml (<200)
[2024-03-12 06:05] LABS: Amphetamine/Metha Screen,Urine Negative ng/ml (<1000); Methadone Screen,Urine Negative ng/ml (<300)
[2024-03-12 06:06] LABS: Cannabinoid Screen,Urine Positive ng/ml (<50)
[2024-03-12 06:07] LABS: Cocaine Screen,Urine Negative ng/ml (<300); Opiate Screen,Urine Negative ng/ml (<300)
[2024-03-12 06:08] LABS: Phencyclidine Screen,Urine Negative ng/ml (<25)
--- NOTE | 2024-03-12 06:22 | PC.NURSE ---
Called [facility] to notify facility that pt is ready for d/c and they can come and pick him up.
--- NOTE | 2024-03-12 06:36 | PC.NURSE ---
waiting on ride
[2024-03-12 06:49] LABS: Reflex Lactic Add Lactic Reflex
--- NOTE | 2024-03-12 07:15 | PC.NURSE ---
called katrin to check on pts ride; neither facility answered call at this time
--- NOTE | 2024-03-12 07:29 | PC.NURSE ---
Jimy Chavez spoke with Kathy at [facility] about getting pt a ride. They advised they would be here shortly
--- NOTE | 2024-03-12 08:12 | PC.NURSE ---
Talked with [facility], they are waiting on management to get pt a ride to their facility
--- NOTE | 2024-03-12 09:14 | PC.NURSE ---
Called [facility] again to come and pick this pt up.
--- NOTE | 2024-03-12 09:16 | PC.NURSE ---
Spoke with Heather in care management regarding discharge and [place] management still not shown up to get the patient.
== END 2024-03-12 09:49 | disposition home or self-care (01) ==
PROVIDERS: Emergency Provider Emergency Medicine
DX: R00.1 Bradycardia, unspecified (principal); F12.10 Cannabis abuse, uncomplicated; R41.82 Altered mental status, unspecified
CPT/HCPCS: 70450; 71045; 80053; 80307; 80320; 80329; 81001; 82803; 83735; 84439; 84443; 85025; 85610; 93005; 96360; 96361; 99284; G0480; J7030

== ENCOUNTER 2024-04-23 12:21 | Emergency (ER) | payer MEDICARE, MEDICAID, SELFPAY ==
--- NOTE | 2024-04-23 12:24 | ED_ITS ---
<Statement entered by Noemi Lucero DO - 04/23/24 12:33> I was consulted by the RAMIRO, and we discussed the complexity of the problems being addressed. I approved the treatment and management plan for this patient's care in the emergency department, thus performing a substantive portion of the medical decision making. Patient is alert, oriented, conversational, at his baseline. No concerns or complaints per the patient, and exam and vitals reassuring. He is deemed to be appropriate for discharge without workup. Noemi Lucero DO Discharge Plan Disposition Patient Disposition: Home, Self-Care Condition: Good Prescriptions Prescriptions: No Action sertraline [Zoloft] 100 mg Tablet 200 mg PO DAILY atorvastatin 80 mg Tablet 80 mg PO HS meloxicam 15 mg Tablet 15 mg PO DAILY divalproex [Depakote ER] 500 mg Tablet Extended Release 24 Hr 1,000 mg PO BID topiramate 200 mg Tablet 200 mg PO BID thiamine HCl (vitamin B1) [Vitamin B-1] 100 mg Tablet 100 mg PO DAILY albuterol 90 mcg/actuation Aerosol 2 mcg INHALATION NEEDED PRN (Reason: soa) cephalexin 500 mg capsule 500 mg PO BID 7 Days Qty: 14 0RF erythromycin 5 mg/gram (0.5 %) ointment 1 applic ophthalmic (eye) BID Qty: 3.5 0RF lacosamide [Vimpat] 200 mg Tablet 200 mg PO BID Activity Restrictions/Add. Instructions Additional Instructions/Restrictions: Follow-up with your PCP for any new or worsening signs or symptoms. Return to the ER for any worsening signs or symptoms as needed. Clinical Impressions Clinical Impression: Encounter for medical assessment Print Language Print Language: Ethiopian Discharge ED Provider: Noemi Lucero General Adult HPI General Stated complaint: weakness Time Seen by Provider: 04/23/24 12:24 History of Present Illness HPI narrative: Patient presents via EMS for medical evaluation. Patient states that he walked [place] of the court house to pay on to find a day afterwards he was just sitting on the steps. EMS was called but not by the patient and unsure what the initial complaint was. Patient himself denies any complaints today although he is very well-known to our emergency department. He denies smoking synthetic marijuana intoxication chest pain shortness of breath fever chills hemoptysis hematochezia melena nausea vomiting diarrhea. Related Data Home Medications ?Medication ?Instructions ?Recorded ?Confirmed albuterol 90 mcg/actuation aerosol 2 mcg inhalation NEEDED PRN soa 10/25/23 10/25/23 inhaler atorvastatin 80 mg tablet 80 mg PO HS 10/25/23 10/25/23 divalproex 500 mg tablet,extended 1,000 mg PO BID 10/25/23 02/21/24 release 24 hr (Depakote ER) meloxicam 15 mg tablet 15 mg PO DAILY 10/25/23 10/25/23 sertraline 100 mg tablet (Zoloft) 200 mg PO DAILY 10/25/23 10/25/23 thiamine HCl (vitamin B1) 100 mg 100 mg PO DAILY 10/25/23 10/25/23 tablet (Vitamin B-1) topiramate 200 mg tablet 200 mg PO BID 10/25/23 02/21/24 lacosamide 200 mg tablet (Vimpat) 200 mg PO BID 02/21/24 02/21/24 Previous Rx's ?Medication ?Instructions ?Recorded cephalexin 500 mg capsule 500 mg PO BID 7 days #14 caps 11/26/23 erythromycin 5 mg/gram (0.5 %) eye 1 applic ophthalmic (eye) BID #3.5 11/26/23 ointment grams Allergies Allergy/AdvReac Type Severity Reaction Status Date / Time No Known Allergies Allergy Verified 02/22/24 17:16 [facility] Disclaimer: The information contained in this section may have been updated after the patient was seen, as this information can be updated by other users. Medical History Seizures Surgical History H/O heart artery stent Social History Smoking Status: Former smoker alcohol intake: never current occupational status: unemployed Travel in the last 8 weeks: None ROS Obtained: Yes Systems reviewed as appropriate & no additional complaints except as documented Physical Exam General General appearance: alert and in no apparent distress Respiratory Respiratory exam: Present normal lung sounds bilaterally Cardiovascular Cardiovascular exam: Present regular rate Neurological Exam Neurological exam: Present alert and oriented X3 Medical Decision Making Medical Records Medical records reviewed: Yes I reviewed the patient's medical records. Screening: Per USPSTF and CDC recommendations, given the prevalence of disease in our region, it is our hospital?s policy to screen for HIV and viral Hepatitis for all patients aged 18 and over and those with ongoing risk factors. Joseluis Inquiry Pt receiving controlled substance: No Medical Decision Narrative: In summary patient is a 59-year-old male who presents to the emergency department for medical evaluation. Patient is hemodynamically stable upon arrival, afebrile. Physical exam is unremarkable and nonfocal including normal breath sounds normal heart sounds patient appears to retain capacity for decision-making appears to be awake alert and oriented to person place and circumstance. He does not know why EMS was called he did not requested. He denies any complaints today.. Differential diagnosis considered including intoxication versus shortness of breath anxiety however patient denies any complaints thus today no further investigation required initial investigations considered including blood work and x-rays again however patient is awake alert and oriented with no focal neurologic deficits and retains capacity for decision making thus deferred. Given this patient is appropriate for discharge back to [place] with follow-up with his PCP for any change or worsening in his symptoms or complaints. Critical Care Critical Care Time Critical Care Time: No
[2024-04-23 12:45] VITALS: BP 102/47; PULSE 67; RESP 18; O2SAT 97
--- NOTE | 2024-04-23 12:49 | PC.NURSE ---
called [facility] for transfer back to facility, no answer. Will try calling again shortly.
[2024-04-23 12:56] VITALS: BP 98/55; PULSE 75; RESP 14; TEMP 36.6; O2SAT 99; BMI 25.7
[2024-04-23 13:00] VITALS: BP 101/62; PULSE 71; RESP 14; TEMP 36.6; O2SAT 100
--- NOTE | 2024-04-23 13:03 | PC.NURSE ---
I am still unable to reach [facility]. I spoke with Jeni at [facility] who states they have no meants to transport the pt.
--- NOTE | 2024-04-23 13:05 | PC.NURSE ---
Jesi RN is speaking with care management at this time to inquire about finding the pt a ride back to [facility].Care management is working on a ride.
--- NOTE | 2024-04-23 13:08 | SW/DCPLANNER ---
I spoke wJudith Tariq at [facility] and she will look into transportation for this patient then contact me back.
--- NOTE | 2024-04-23 14:34 | PC.NURSE ---
called and spoke with heather reid about [facility] never showed up, she states she was calling them back to see status update on pt ride
== END 2024-04-23 14:52 | disposition home or self-care (01) ==
PROVIDERS: Emergency Provider Emergency Medicine
DX: Z00.8 Encounter for other general examination (principal); R53.83 Other fatigue
CPT/HCPCS: 99282